=== PATIENT | female | born 1940 | race American Indian/Alaskan Native ===

== ENCOUNTER 2019-01-14 07:32 | Inpatient (IN) | payer MEDICARE ==
[2019-01-14] MEDS ORDERED: LASIX IV ONE (07:42)
[2019-01-14 07:57] LABS: Basophils % (Auto) 0.5 % (0.0-1.8); Eosinophils # (Auto) 0.1 K/mm3 (0.0-0.4); Eosinophils % (Auto) 1.3 % (0.0-4.3); Hematocrit 32.4 % (30.3-42.9); Hemoglobin 10.2 gm/dl (10.1-14.3); Lymphocytes # (Auto) 0.8 K/mm3 (1.2-5.4); Mean Corpuscular HGB Conc 31 % (30-34); Mean Corpuscular Volume 90 fl (79-97); Monocytes # (Auto) 0.4 K/mm3 (0.0-0.8); Monocytes % (Auto) 5.5 % (0.0-7.3); Platelet Count 199 K/mm3 (140-440); Red Cell Distribution Width 17.1 % (13.2-15.2)
--- NOTE | 2019-01-14 08:06 | XRay Report ---
AP CHEST: HISTORY: Dyspnea No comparison. Mild cardiomegaly and mild pulmonary venous congestion are identified. The lungs are generally clear. No evidence for infiltrate, pleural effusion or pneumothorax. The bony structures are demineralized with degenerative change. No displaced fracture is appreciated. IMPRESSION: Mild cardiomegaly and pulmonary venous congestion the no CHF.
[2019-01-14 08:12] LABS: INR 1.13 (0.87-1.13)
[2019-01-14 08:23] LABS: Albumin 3.1 g/dL (3.9-5); Calcium 8.1 mg/dL (8.4-10.2)
[2019-01-14] MEDS ORDERED: DIOVAN PO NR (08:27)
[2019-01-14] MEDS ORDERED: NORMODYNE IV ONE ×2 (08:27→09:57)
[2019-01-14 08:33] LABS: Bacteria,Urine 1+ /HPF (Negative); Bilirubin,Urine NEG (Negative); Blood,Urine SM (Negative); Color,Urine Yellow (Yellow); Mucus,Urine FEW /HPF; Urobilinogen,Urine < 2.0 mg/dL (<2.0)
[2019-01-14 08:39] LABS: Chol/HDL Ratio 3.78 %
--- NOTE | 2019-01-14 09:12 | Emergency Department Report ---
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 History is limited from patient. Hx obtained from daughter, discharge documentation and SNF notes. Mrs. Sanchez was recently discharged from [facility] ago January 11. She was diagnosed with pneumonia. She also has hx of CHF and severe CKD according to daughter/POA Odilia Greenwood . Ms. Greenwood last saw her mother at SNF in [facility]. THis morning, daughter notified by SNF staff that EMS was called for lethargy and obvious work of breathing. EMS applied CPAP for hypoxia 88% RA. prescribed antibiotic cefdinir. Daughter stated that clonidine, hydralazine and amlodipine were discontinued. Daughter explained that Mrs. Sanchez desires comfort care. With certainty, daughter knows that Mrs. Sanchez does not desire intubation nor dialysis./ She does not desire continued aggressive medical treatment. Consequently, daughter is now comfortable with making Mrs. Sanchez DO NOT RESUSCITATE status according to her mother's wishes. PCP Dr. Salo Corona, [facility] Dr. Zi Mcfarlane, [facility] Dr. Joshua Torres, [employer] According to discharge documentation medications include isosorbide mononitrate Nystatin cream Potassium chloride Vesicare torsemide Albuterol Allopurinol Aspirin Colchicine dexlansoprazole Docusate Epoetin Ferrous sulfate Eliquis Atorvastatin Kaylee TOMLINSON Complaint: shortness of breath -: This morning Severity: severe Improves With: other (unknown) Worsens With: other (unknown) Known History Of: congestive heart failure, other (CKD "chronic Bronchitis") Context: other (recent hospitalization) - Related Data Home Medications Medication Instructions Recorded Confirmed Last Taken Acetaminophen/Codeine [Tylenol #3] 1 tab PO Q6H PRN 06/25/13 06/25/13 06/20/13 Amlodipine Besylate 10 mg PO DAILY 06/25/13 06/25/13 06/24/13 Carvedilol 25 mg PO TID 06/25/13 06/25/13 06/24/13 Clopidogrel Bisulfate [Clopidogrel] 75 mg PO 06/25/13 06/25/13 06/18/13 Cyclobenzaprine [Flexeril] 10 mg PO TID 06/25/13 06/25/13 06/21/13 Dexlansoprazole [Dexilant] 60 mg PO DAILY 06/25/13 06/25/13 06/24/13 Docusate Sodium 100 mg PO BID 06/25/13 06/25/13 06/24/13 Ferrous Sulfate [Ferrous Sulfate 325 mg PO DAILY 06/25/13 06/25/13 06/18/13 Oral Liq 300 Mg/5 Ml] Folic Acid/Vit B Comp W-C 1 cap PO QDAY 06/25/13 06/25/13 06/24/13 [Nephrocaps] Hydralazine HCl [hydrALAZINE] 100 mg PO TID 06/25/13 06/25/13 06/24/13 Potassium Chloride [K-Dur] 20 mg PO DAILY 06/25/13 06/25/13 06/24/13 Repaglinide [Prandin] 1 mg PO 06/25/13 06/25/13 06/24/13 Simvastatin 20 mg PO QHS 06/25/13 06/25/13 04/12/13 Sucralfate 1 gm PO TID 06/25/13 06/25/13 06/24/13 Torsemide [Demadex] 20 mg PO BID 06/25/13 06/25/13 06/24/13 Valsartan(Nf) [Diovan] 320 mg PO DAILY 06/25/13 06/25/13 06/24/13 Zolpidem Tartrate 5 mg PO QHS 06/25/13 06/25/13 06/24/13 cloNIDine [Clonidine] 0.2 mg SUBDERMAL QWEEK 06/25/13 06/25/13 06/22/13 fentaNYL [Fentanyl] 75 mg SUBDERMAL Q72HR 06/25/13 06/25/13 06/23/13 Allergies Allergy/AdvReac Type Severity Reaction Status Date / Time ibuprofen AdvReac Severe STOMACH Unverified 06/25/13 08:52 PAIN ED Review of Systems ROS: Stated complaint: ANNABELLA Other details as noted in HPI Comment: Unobtainable due to pts medical conditions (severe respiratory distress) ED Past Medical Hx - Past Medical History Previous Medical History?: Yes Hx Hypertension: Yes Hx Heart Attack/AMI: Yes (2010 w/ stroke) Hx Congestive Heart Failure: Yes Hx Diabetes: Yes Hx GERD: Yes Hx Renal Disease: No (DIMISHED KIDNEYS) Hx Arthritis: Yes Hx Asthma: Yes - Surgical History Additional Surgical History: UTO - Social History Smoking Status: Former Smoker Substance Use Type: None - Medications Home Medications: Home Medications Medication Instructions Recorded Confirmed Last Taken Type Acetaminophen/Codeine [Tylenol #3] 1 tab PO Q6H PRN 06/25/13 06/25/13 06/20/13 History Amlodipine Besylate 10 mg PO DAILY 06/25/13 06/25/13 06/24/13 History Carvedilol 25 mg PO TID 06/25/13 06/25/13 06/24/13 History Clopidogrel Bisulfate [Clopidogrel] 75 mg PO 06/25/13 06/25/13 06/18/13 History Cyclobenzaprine [Flexeril] 10 mg PO TID 06/25/13 06/25/13 06/21/13 History Dexlansoprazole [Dexilant] 60 mg PO DAILY 06/25/13 06/25/13 06/24/13 History Docusate Sodium 100 mg PO BID 06/25/13 06/25/13 06/24/13 History Ferrous Sulfate [Ferrous Sulfate 325 mg PO DAILY 06/25/13 06/25/13 06/18/13 History Oral Liq 300 Mg/5 Ml] Folic Acid/Vit B Comp W-C 1 cap PO QDAY 06/25/13 06/25/13 06/24/13 History [Nephrocaps] Hydralazine HCl [hydrALAZINE] 100 mg PO TID 06/25/13 06/25/13 06/24/13 History Potassium Chloride [K-Dur] 20 mg PO DAILY 06/25/13 06/25/13 06/24/13 History Repaglinide [Prandin] 1 mg PO 06/25/13 06/25/13 06/24/13 History Simvastatin 20 mg PO QHS 06/25/13 06/25/13 04/12/13 History Sucralfate 1 gm PO TID 06/25/13 06/25/13 06/24/13 History Torsemide [Demadex] 20 mg PO BID 06/25/13 06/25/13 06/24/13 History Valsartan(Nf) [Diovan] 320 mg PO DAILY 06/25/13 06/25/13 06/24/13 History Zolpidem Tartrate 5 mg PO QHS 06/25/13 06/25/13 06/24/13 History cloNIDine [Clonidine] 0.2 mg SUBDERMAL QWEEK 06/25/13 06/25/13 06/22/13 History fentaNYL [Fentanyl] 75 mg SUBDERMAL Q72HR 06/25/13 06/25/13 06/23/13 History ED Physical Exam - General Limitations: Physical Limitation General appearance: alert, lethargic, in distress - Head Head exam: Present: atraumatic, normocephalic - Eye Eye exam: Present: normal appearance - ENT ENT exam: Present: mucous membranes moist - Neck Neck exam: Present: normal inspection - Respiratory Respiratory exam: Present: respiratory distress, rales, rhonchi, accessory muscle use, decreased breath sounds - Cardiovascular Cardiovascular Exam: Present: regular rate, normal rhythm, normal heart sounds. Absent: systolic murmur, diastolic murmur, rubs, gallop - GI/Abdominal GI/Abdominal exam: Present: soft, normal bowel sounds. Absent: distended, tenderness, guarding, rebound - Extremities Exam Extremities exam: Present: pedal edema - Back Exam Back exam: Present: normal inspection - Neurological Exam Neurological exam: Present: other (arousable) - Psychiatric Psychiatric exam: Present: flat affect - Skin Skin exam: Present: warm, dry, intact, normal color. Absent: rash ED Course Vital Signs 01/14/19 01/14/19 01/14/19 07:45 08:20 08:35 Temperature 98.9 F Pulse Rate 88 80 Respiratory 24 Rate Blood Pressure 204/132 190/92 Blood Pressure 210/100 [Right] O2 Sat by Pulse 98 Oximetry 01/14/19 01/14/19 01/14/19 09:15 09:26 09:32 Temperature Pulse Rate 89 80 Respiratory 12 17 Rate Blood Pressure 210/100 Blood Pressure 188/83 [Right] O2 Sat by Pulse 96 96 97 Oximetry ED Medical Decision Making - Lab Data Result diagrams: 01/14/19 07:48 01/14/19 07:48 Laboratory Results - last 24 hr 01/14/19 01/14/19 01/14/19 07:45 07:48 07:48 WBC 7.0 RBC 3.60 L Hgb 10.2 Hct 32.4 MCV 90 MCH 28 MCHC 31 RDW 17.1 H Plt Count 199 Lymph % (Auto) 11.0 L Sch[place] % (Auto) 5.5 Eos % (Auto) 1.3 Baso % (Auto) 0.5 Lymph # 0.8 L [place] # 0.4 Eos # 0.1 Baso # 0.0 Seg Neutrophils % 81.7 H Seg Neutrophils # 5.8 PT 15.2 H INR 1.13 POC ABG pH POC ABG pCO2 POC ABG pO2 POC ABG HCO3 POC ABG Total CO2 POC ABG O2 Sat POC ABG Base Excess FiO2 Sodium Potassium Chloride Carbon Dioxide Anion Gap BUN Creatinine Estimated GFR BUN/Creatinine Ratio Glucose Lactic Acid 1.00 Calcium Magnesium Total Bilirubin AST ALT Alkaline Phosphatase Troponin T NT-Pro-B Natriuret Pep Total Protein Albumin Albumin/Globulin Ratio Triglycerides Cholesterol LDL Cholesterol Direct HDL Cholesterol Cholesterol/HDL Ratio Urine Color Urine Turbidity Urine pH Ur Specific [place] Urine Protein Urine Glucose (UA) Urine Ketones Urine Blood Urine Nitrite Urine Bilirubin Urine Urobilinogen Ur Leukocyte Esterase Urine WBC (Auto) Urine RBC (Auto) Urine Bacteria (Auto) Urine Mucus 01/14/19 01/14/19 01/14/19 07:48 07:48 08:58 WBC RBC Hgb Hct MCV MCH MCHC RDW Plt Count Lymph % (Auto) [place] % (Auto) Eos % (Auto) Baso % (Auto) Lymph # [place] # Eos # Baso # Seg Neutrophils % Seg Neutrophils # PT INR POC ABG pH 7.384 POC ABG pCO2 50.8 H POC ABG pO2 104 POC ABG HCO3 30.3 POC ABG Total CO2 32 POC ABG O2 Sat 98 POC ABG Base Excess 5 FiO2 35 Sodium 147 H Potassium 4.7 Chloride 106.6 Carbon Dioxide 27 Anion Gap 18 BUN 72 H Creatinine 3.4 H Estimated GFR 16 BUN/Creatinine Ratio 21 Glucose 113 H Lactic Acid Calcium 8.1 L Magnesium 2.10 Total Bilirubin 0.30 AST 25 ALT 9 Alkaline Phosphatase 52 Troponin T 0.496 H* NT-Pro-B Natriuret Pep 8268 H Total Protein 7.6 Albumin 3.1 L Albumin/Globulin Ratio 0.7 Triglycerides 96 Cholesterol 174 LDL Cholesterol Direct 128 HDL Cholesterol 46 Cholesterol/HDL Ratio 3.78 Urine Color Urine Turbidity Urine pH Ur Specific [place] Urine Protein Urine Glucose (UA) Urine Ketones Urine Blood Urine Nitrite Urine Bilirubin Urine Urobilinogen Ur Leukocyte Esterase Urine WBC (Auto) Urine RBC (Auto) Urine Bacteria (Auto) Urine Mucus 01/14/19 Unknown WBC RBC Hgb Hct MCV MCH MCHC RDW Plt Count Lymph % (Auto) [place] % (Auto) Eos % (Auto) Baso % (Auto) Lymph # Schley # Eos # Baso # Seg Neutrophils % Seg Neutrophils # PT INR POC ABG pH POC ABG pCO2 POC ABG pO2 POC ABG HCO3 POC ABG Total CO2 POC ABG O2 Sat POC ABG Base Excess FiO2 Sodium Potassium Chloride Carbon Dioxide Anion Gap BUN Creatinine Estimated GFR BUN/Creatinine Ratio Glucose Lactic Acid Calcium Magnesium Total Bilirubin AST ALT Alkaline Phosphatase Troponin T NT-Pro-B Natriuret Pep Total Protein Albumin Albumin/Globulin Ratio Triglycerides Cholesterol LDL Cholesterol Direct HDL Cholesterol Cholesterol/HDL Ratio Urine Color Yellow Urine Turbidity Clear Urine pH 5.0 Ur Specific [place] 1.008 Urine Protein 30 mg/dl Urine Glucose (UA) Neg Urine Ketones Neg Urine Blood Sm Urine Nitrite Neg Urine Bilirubin Neg Urine Urobilinogen < 2.0 Ur Leukocyte Esterase Tr Urine WBC (Auto) 5.0 Urine RBC (Auto) 5.0 Urine Bacteria (Auto) 1+ Urine Mucus Few - EKG Data 01/14/19 09:15 EKG obtained 0731 Normal sinus rhythm rate 80 beats a minute axis intervals no significant ST elevation positive LVH lateral T-wave inversion - Radiology Data Radiology results: report reviewed - Medical Decision Making 1. Acute respiratory failure hypoxia, etiology multifactorial, acute CHF, history of pneumonia, history of chronic bronchitis, initiated on BiPAP therapy, now on Ventimask. 2. Hypertensive emergency: IV and by mouth antihypertensive medications administered in the ED 3. Acute coronary syndrome, elevated troponin unclear significance at this time, primary cardiology group [facility] has been consulted, ASA held with hx of eliquis anticoagulation 4. DNR status, form completed with daughter's signature, witnessed by RN, Admitted to hospitalist service in fair condition Critical Care Time: Yes Critical care time in (mins) excluding proc time.: 40 Critical care attestation.: If time is entered above; I have spent that time in minutes in the direct care of this critically ill patient, excluding procedure time. 40 minutes of critical care time excluding procedures were used in the care of the patient. Patient required multiple assessments and interventions. I reviewed the electronic medical record. I spoke with consultants involved in the care of the patient. I came to the bedside immediately upon arrival. I was concerned for worsening respiratory failure. I obtain history from EMS. I had an extensive discussion regarding end-of-life wishes of the patient with daughter. ED Disposition Clinical Impression: Acute respiratory failure with hypoxia, Acute CHF (congestive heart failure), Hypertensive emergency Disposition: [id number] OP ADMIT IP TO THIS HOSP Is pt being admited?: Yes Does the pt Need Aspirin: No Condition: Fair Referrals: SALO CORONA [Other] - 3-5 Days
[2019-01-14] MEDS ORDERED: MORPHINE IV ONE ×2 (10:28→11:06)
--- NOTE | 2019-01-14 10:55 | Consultation ---
History of Present Illness Consult date: 01/14/19 Consult reason: congestive heart failure History of present illness: Patient is an 78 year old woman who was sent to the emergency department from the shelter with shortness of breath, admitted with hypoxic respiratory failure and uncontrolled hypertension. Of note, patient was discharged from [facility] 72 hours ago. On presentation, there were no reports of chest pain or palpitations. She has no lower extremity edema. Chest x-ray reports cardiomegaly but no evidence of heart failure. An ECG is sinus rhythm, LVH with repolarization abnormalities. Family member at bedside reports the patient is followed by [facility]. Review of chart shows a history of paroxysmal atrial fibrillation and she takes low dose eliquis for oral anticoagulation. Records also reports she has a history of CHF, chronic hypertension, chronic renal disease, diabetes and chronic pain. Medications and Allergies Allergies Allergy/AdvReac Type Severity Reaction Status Date / Time ibuprofen AdvReac Severe STOMACH Unverified 06/25/13 08:52 PAIN Home Medications Medication Instructions Recorded Confirmed Last Taken Type ALBUTEROL Inhaler (OR & NICU) 2 puff IH QID PRN 01/14/19 01/14/19 Unknown History [Proair] Allopurinol [Zyloprim] 100 mg PO QDAY 01/14/19 01/14/19 Unknown History Apixaban [Eliquis] 2.5 mg PO BID 01/14/19 01/14/19 Unknown History Aspirin [Adult Aspirin] 81 mg PO DAILY 01/14/19 01/14/19 Unknown History AtorvaSTATin [Lipitor] 40 mg PO QHS 01/14/19 01/14/19 Unknown History Carvedilol 6.25 mg PO BID 01/14/19 01/14/19 Unknown History Colchicine 0.6 mg PO DAILY 01/14/19 01/14/19 Unknown History Dexlansoprazole [Dexilant] 30 mg PO QDAY 01/14/19 01/14/19 Unknown History Docusate Sodium [Colace] 100 mg PO BID 01/14/19 01/14/19 Unknown History Ferrous Sulfate [Iron 325 MG] 325 mg PO DAILY 01/14/19 01/14/19 Unknown History ISOSORBIDE MONOnitrate [Imdur ER] 60 mg PO QDAY 01/14/19 01/14/19 Unknown History Potassium Chloride [K-Dur] 10 meq PO BID 01/14/19 01/14/19 Unknown History Pregabalin [Lyrica] 50 mg PO DAILY 01/14/19 01/14/19 Unknown History Torsemide [Demadex] 80 mg PO DAILY 01/14/19 01/14/19 Unknown History Valsartan 40 mg PO DAILY 01/14/19 01/14/19 Unknown History Vit B Comp No.3/Folic/C/Biotin 1 each PO DAILY 01/14/19 01/14/19 Unknown History [Nephro-Rocío Rx Tablet] Physical Examination Vital Signs Temp Pulse Resp BP Pulse Ox 98.9 F 88 24 204/132 98 01/14/19 07:45 01/14/19 07:45 01/14/19 07:45 01/14/19 07:45 01/14/19 07:45 General appearance: no acute distress HEENT: Positive: PERRL Neck: Positive: trachea midline Cardiac: Positive: Reg Rate and Rhythm Lungs: Positive: Decreased Breath Sounds Extremities: Absent: edema Results 01/14/19 07:48 01/14/19 07:48 Cardiac Enzymes 01/14/19 Range/Units 07:48 AST 25 (5-40) units/L Coagulation 01/14/19 Range/Units 07:48 PT 15.2 H (12.2-14.9) Sec. INR 1.13 (0.87-1.13) Lipids 01/14/19 Range/Units 07:48 Triglycerides 96 (2-149) mg/dL Cholesterol 174 (50-199) mg/dL HDL Cholesterol 46 (40-59) mg/dL Cholesterol/HDL Ratio 3.78 % CBC 01/14/19 Range/Units 07:48 WBC 7.0 (4.5-11.0) K/mm3 RBC 3.60 L (3.65-5.03) M/mm3 Hgb 10.2 (10.1-14.3) gm/dl Hct 32.4 (30.3-42.9) % Plt Count 199 (140-440) K/mm3 Lymph # 0.8 L (1.2-5.4) K/mm3 [place] # 0.4 (0.0-0.8) K/mm3 Eos # 0.1 (0.0-0.4) K/mm3 Baso # 0.0 (0.0-0.1) K/mm3 Comprehensive Metabolic Panel 01/14/19 Range/Units 07:48 Sodium 147 H (137-145) mmol/L Potassium 4.7 (3.6-5.0) mmol/L Chloride 106.6 (98-107) mmol/L Carbon Dioxide 27 (22-30) mmol/L BUN 72 H (7-17) mg/dL Creatinine 3.4 H (0.7-1.2) mg/dL Glucose 113 H (65-100) mg/dL Calcium 8.1 L (8.4-10.2) mg/dL AST 25 (5-40) units/L ALT 9 (7-56) units/L Alkaline Phosphatase 52 (35-129) units/L Total Protein 7.6 (6.3-8.2) g/dL Albumin 3.1 L (3.9-5) g/dL Assessment and Plan Acute hypoxic respiratory failure Chronic renal disease Hypertension Paroxysmal Afib on eliquis 2.5mg as an outpatient Diabetes hx of CHF Obtain cardiac records from [facility].
[2019-01-14] MEDS ORDERED: CATAPRES PO ONE (11:06)
[2019-01-14] MEDS ORDERED: PROAIR IH PRN (12:18)
[2019-01-14] MEDS ORDERED: ZOFRAN IV PRN (12:26)
[2019-01-14] MEDS ORDERED: SODIUM CHLORIDE FLUSH SYRINGE 10 ML IV PRN (12:26)
[2019-01-14] MEDS ORDERED: TYLENOL PO PRN (12:26)
[2019-01-14] MEDS ORDERED: NARCAN 0.4 MG/1 ML IV PRN (12:49)
--- NOTE | 2019-01-14 14:57 | History and Physical Report ---
History of Present Illness Date of examination: 01/14/19 Date of admission: 01/14/19 09:55 Chief complaint: Acute Respiratory Failure History of present illness: 78 y.o Female with history of DM, CKD, Storke in 2010, CHF, paroxysmal atrial fibrillation anticoagulated on Eliquis, HTN, presented to the ED via EMS for acute hypoxic respiratory failure. Pt was recently admitted and treated at [facility] for UTI and PNA. She was discharged to [facility]. Upon EMS arrival to [facility] pt was round to be in hypoxic and in respiratory distress, she was placed on CPAP and transported to [facility]. Past History Past Medical History: heart failure, hypertension, stroke, other Past Surgical History: No surgical history Social history: lives with family Family history: no significant family history Medications and Allergies Allergies Allergy/AdvReac Type Severity Reaction Status Date / Time ibuprofen AdvReac Severe STOMACH Unverified 06/25/13 08:52 PAIN Home Medications Medication Instructions Recorded Confirmed Last Taken Type ALBUTEROL Inhaler (OR & NICU) 2 puff IH QID PRN 01/14/19 01/14/19 Unknown History [Proair] Allopurinol [Zyloprim] 100 mg PO QDAY 01/14/19 01/14/19 Unknown History Apixaban [Eliquis] 2.5 mg PO BID 01/14/19 01/14/19 Unknown History Aspirin [Adult Aspirin] 81 mg PO DAILY 01/14/19 01/14/19 Unknown History AtorvaSTATin [Lipitor] 40 mg PO QHS 01/14/19 01/14/19 Unknown History Carvedilol 6.25 mg PO BID 01/14/19 01/14/19 Unknown History Colchicine 0.6 mg PO DAILY 01/14/19 01/14/19 Unknown History Dexlansoprazole [Dexilant] 30 mg PO QDAY 01/14/19 01/14/19 Unknown History Docusate Sodium [Colace] 100 mg PO BID 01/14/19 01/14/19 Unknown History Ferrous Sulfate [Iron 325 MG] 325 mg PO DAILY 01/14/19 01/14/19 Unknown History ISOSORBIDE MONOnitrate [Imdur ER] 60 mg PO QDAY 01/14/19 01/14/19 Unknown History Potassium Chloride [K-Dur] 10 meq PO BID 01/14/19 01/14/19 Unknown History Pregabalin [Lyrica] 50 mg PO DAILY 01/14/19 01/14/19 Unknown History Torsemide [Demadex] 80 mg PO DAILY 01/14/19 01/14/19 Unknown History Valsartan 40 mg PO DAILY 01/14/19 01/14/19 Unknown History Vit B Comp No.3/Folic/C/Biotin 1 each PO DAILY 01/14/19 01/14/19 Unknown History [Nephro-Rocío Rx Tablet] Active Meds: Active Medications Acetaminophen (Tylenol) 650 mg PO Q4H PRN PRN Reason: Pain MILD(1-3)/Fever >100.5/MARTELL Albuterol (Proventil) 2.5 mg IH Q4HRT PRN PRN Reason: Shortness Of Breath Allopurinol (Zyloprim) 100 mg PO QDAY [facility] Apixaban (Eliquis) 2.5 mg PO BID SALVATORE; Protocol Aspirin (Halfprin Ec) 81 mg PO DAILY [facility] Atorvastatin Calcium (Lipitor) 40 mg PO QHS [facility], [facility] Carvedilol (Coreg) 6.25 mg PO BID [facility] Colchicine (Colchicine) 0.6 mg PO DAILY [facility] Docusate Sodium (Colace) 100 mg PO BID [facility] Ferrous Sulfate (Feosol) 325 mg PO DAILY [facility]1983 Furosemide (Lasix) 40 mg IV BID@0600,1800 [facility], [facility]1983 Isosorbide Mononitrate (Imdur) 60 mg PO QDAY [facility] Morphine Sulfate (Morphine) 2 mg IV Q4H PRN PRN Reason: Pain, Moderate (4-6) Multivit/Ca Carb/B Cmplx/FA/Prenat (Renal Caps) 1 cap PO QDAY [facility] Naloxone HCl (Narcan 0.4 Mg/1 Ml) 0.1 mg IV Q2MIN PRN PRN Reason: Res Rate </= 8 or 02 SAT < 92% Ondansetron HCl (Zofran) 4 mg IV Q8H PRN PRN Reason: Nausea And Vomiting Pantoprazole Sodium (Protonix) 20 mg PO QDAY [facility] Potassium Chloride (K-Dur) 10 meq PO BID [facility] Pregabalin (Lyrica) 50 mg PO QDAY [facility] Sodium Chloride (Sodium Chloride Flush Syringe 10 Ml) 10 ml IV BID [facility] Sodium Chloride (Sodium Chloride Flush Syringe 10 Ml) 10 ml IV PRN PRN PRN Reason: LINE FLUSH Valsartan (Diovan) 40 mg PO DAILY SALVATORE Review of Systems ROS unobtainable: due to mental status Exam - Constitutional Vitals: Temp Pulse Resp BP Pulse Ox 98.9 F 80 18 174/75 91 01/14/19 07:45 01/14/19 11:32 01/14/19 11:32 01/14/19 11:32 01/14/19 11:32 General appearance: Present: no acute distress - EENT Eyes: Present: PERRL ENT: other - Neck Neck: Present: supple - Respiratory Respiratory effort: labored Respiratory: bilateral: diminished - Cardiovascular Rhythm: irregularly irregular Heart Sounds: Present: S1 & S2 - Extremities Extremities: pulses symmetrical, No edema - Abdominal General gastrointestinal: Present: soft Female genitourinary: Present: deferred - Rectal Rectal Exam: deferred - Integumentary Integumentary: Present: warm, dry - Musculoskeletal Musculoskeletal: other - Psychiatric Psychiatric: other - Neurologic Neurologic: other (Unable to assess ) Results - Labs CBC & Chem 7: 01/14/19 07:48 01/14/19 07:48 Labs: Laboratory Last Values WBC 7.0 K/mm3 (4.5-11.0) 01/14/19 07:48 RBC 3.60 M/mm3 (3.65-5.03) L 01/14/19 07:48 Hgb 10.2 gm/dl (10.1-14.3) 01/14/19 07:48 Hct 32.4 % (30.3-42.9) 01/14/19 07:48 MCV 90 fl (79-97) 01/14/19 07:48 MCH 28 pg (28-32) 01/14/19 07:48 MCHC 31 % (30-34) 01/14/19 07:48 RDW 17.1 % (13.2-15.2) H 01/14/19 07:48 Plt Count 199 K/mm3 (140-440) 01/14/19 07:48 Lymph % (Auto) 11.0 % (13.4-35.0) L 01/14/19 07:48 [place] % (Auto) 5.5 % (0.0-7.3) 01/14/19 07:48 Eos % (Auto) 1.3 % (0.0-4.3) 01/14/19 07:48 Baso % (Auto) 0.5 % (0.0-1.8) 01/14/19 07:48 Lymph # 0.8 K/mm3 (1.2-5.4) L 01/14/19 07:48 [place] # 0.4 K/mm3 (0.0-0.8) 01/14/19 07:48 Eos # 0.1 K/mm3 (0.0-0.4) 01/14/19 07:48 Baso # 0.0 K/mm3 (0.0-0.1) 01/14/19 07:48 Seg Neutrophils % 81.7 % (40.0-70.0) H 01/14/19 07:48 Seg Neutrophils # 5.8 K/mm3 (1.8-7.7) 01/14/19 07:48 PT 15.2 Sec. (12.2-14.9) H 01/14/19 07:48 INR 1.13 (0.87-1.13) 01/14/19 07:48 POC ABG pH 7.384 (7.35-7.45) 01/14/19 08:58 POC ABG pCO2 50.8 (35-45) H 01/14/19 08:58 POC ABG pO2 104 (80-105) 01/14/19 08:58 POC ABG HCO3 30.3 (22-26 mml/L) 01/14/19 08:58 POC ABG Total CO2 32 (23-27mmol/L) 01/14/19 08:58 POC ABG O2 Sat 98 01/14/19 08:58 POC ABG Base Excess 5 ((-2) - (+3)mmol/L) 01/14/19 08:58 FiO2 35 % 01/14/19 08:58 Sodium 147 mmol/L (137-145) H 01/14/19 07:48 Potassium 4.7 mmol/L (3.6-5.0) 01/14/19 07:48 Chloride 106.6 mmol/L (98-107) 01/14/19 07:48 Carbon Dioxide 27 mmol/L (22-30) 01/14/19 07:48 Anion Gap 18 mmol/L 01/14/19 07:48 BUN 72 mg/dL (7-17) H 01/14/19 07:48 Creatinine 3.4 mg/dL (0.7-1.2) H 01/14/19 07:48 Estimated GFR 16 ml/min 01/14/19 07:48 BUN/Creatinine Ratio 21 % 01/14/19 07:48 Glucose 113 mg/dL (65-100) H 01/14/19 07:48 Lactic Acid 1.00 mmol/L (0.7-2.0) 01/14/19 07:45 Calcium 8.1 mg/dL (8.4-10.2) L 01/14/19 07:48 Magnesium 2.10 mg/dL (1.7-2.3) 01/14/19 07:48 Total Bilirubin 0.30 mg/dL (0.1-1.2) 01/14/19 07:48 AST 25 units/L (5-40) 01/14/19 07:48 ALT 9 units/L (7-56) 01/14/19 07:48 Alkaline Phosphatase 52 units/L (35-129) 01/14/19 07:48 Troponin T 0.496 ng/mL (0.00-0.029) H* 01/14/19 07:48 NT-Pro-B Natriuret Pep 8268 pg/mL (0-900) H 01/14/19 07:48 Total Protein 7.6 g/dL (6.3-8.2) 01/14/19 07:48 Albumin 3.1 g/dL (3.9-5) L 01/14/19 07:48 Albumin/Globulin Ratio 0.7 % 01/14/19 07:48 Triglycerides 96 mg/dL (2-149) 01/14/19 07:48 Cholesterol 174 mg/dL (50-199) 01/14/19 07:48 LDL Cholesterol Direct 128 mg/dL (50-130) 01/14/19 07:48 HDL Cholesterol 46 mg/dL (40-59) 01/14/19 07:48 Cholesterol/HDL Ratio 3.78 % 01/14/19 07:48 Urine Color Yellow (Yellow) 01/14/19 Unknown Urine Turbidity Clear (Clear) 01/14/19 Unknown Urine pH 5.0 (5.0-7.0) 01/14/19 Unknown Ur Specific [place] 1.008 (1.003-1.030) 01/14/19 Unknown Urine Protein 30 mg/dl mg/dL (Negative) 01/14/19 Unknown Urine Glucose (UA) Neg mg/dL (Negative) 01/14/19 Unknown Urine Ketones Neg mg/dL (Negative) 01/14/19 Unknown Urine Blood Sm (Negative) 01/14/19 Unknown Urine Nitrite Neg (Negative) 01/14/19 Unknown Urine Bilirubin Neg (Negative) 01/14/19 Unknown Urine Urobilinogen < 2.0 mg/dL (<2.0) 01/14/19 Unknown Ur Leukocyte Esterase Tr (Negative) 01/14/19 Unknown Urine WBC (Auto) 5.0 /HPF (0.0-6.0) 01/14/19 Unknown Urine RBC (Auto) 5.0 /HPF (0.0-6.0) 01/14/19 Unknown Urine Bacteria (Auto) 1+ /HPF (Negative) 01/14/19 Unknown Urine Mucus Few /HPF 01/14/19 Unknown Assessment and Plan Assessment and plan: 78 y.o Female with history of DM, CKD, [place] in 2010, CHF, paroxysmal atrial fibrillation anticoagulated on Eliquis, HTN, presented to the ED via EMS for acute hypoxic respiratory failure. Recently admitted and treated at [facility] for UTI and PNA. She was discharged to [facility] on 01/11/19. Found to be hypoxic and in respiratory distress at SNF. She was transported to [facility] ER for further evaluation and treatment. Currently pt is on Venturi mask with agonal breathing. She is stuporous. Her family is present at the bedside. Pt is DNR and goals of care were discussed. At this time family has requested home hospice consultation. Acute hypoxic respiratory Currently on Venturi Mask Continue to monitor O2 sats Home hospice consult pending CHF Today's CXR showed mild cardiomegaly and pulmonary venous congestion Cardiology consultated recommendations appreciated Followed by [facility] as Outpatient Paroxysmal A. fib Home regimen includes eliquis 2.5mg Currently on telemetry monitoring Hypertension Continue to monitor BP CKD On admission BUN/Cr 72/3.4 Monitor BUN and creatinine Advance Directives: Yes VTE prophylaxis?: Not ordered
[2019-01-14] MEDS: MORPHINE IV PRN ×2 (17:14→21:14)
[2019-01-14] MEDS: LASIX IV SCH (17:15)
[2019-01-14] MEDS ORDERED: CEPHULAC PO PRN (18:31)
[2019-01-14] MEDS: CEPHULAC PO SCH (20:23)
[2019-01-14] MEDS: ELIQUIS PO SCH (21:13)
[2019-01-14] MEDS: COREG PO SCH (21:13)
[2019-01-14] MEDS: K-DUR PO SCH (21:13)
[2019-01-14] MEDS: COLACE PO SCH (21:13)
[2019-01-14] MEDS: SODIUM CHLORIDE FLUSH SYRINGE 10 ML IV SCH (21:23)
[2019-01-15] MEDS ORDERED: LASIX IV ONE (00:26)
[2019-01-15] MEDS: PROVENTIL IH PRN (00:26)
[2019-01-15] MEDS: MORPHINE IV PRN ×2 (00:52→05:28)
--- NOTE | 2019-01-15 01:41 | XRay Report ---
PROCEDURE: XR CHEST 1V AP TECHNIQUE: Chest radiograph single view. HISTORY: SOB COMPARISONS: January 14, 2019 . FINDINGS: Heart: Normal. Mediastinum/Vessels: Normal. Lungs/Pleural space: There is pulmonary vascular congestion and mild pulmonary edema.. There is no p leural effusion or pneumothorax. Bony thorax: No acute osseous abnormality. Life support devices: None. IMPRESSION: Heart size is normal.. There is pulmonary vascular congestion and mild pulmonary edema.. There is no pleural effusion or pneumothorax. This document is electronically signed by Tino Askew MD., January 15 2019 01:39:40 AM ET
[2019-01-15] MEDS: LASIX IV SCH (06:35)
[2019-01-15] MEDS: LYRICA PO SCH (09:57)
[2019-01-15] MEDS: DIOVAN PO SCH (09:57)
[2019-01-15] MEDS: ZYLOPRIM PO SCH (09:57)
[2019-01-15] MEDS: IMDUR PO SCH (09:58)
[2019-01-15] MEDS: CEPHULAC PO SCH (09:58)
[2019-01-15] MEDS: COLACE PO SCH ×2 (09:58→22:05)
[2019-01-15] MEDS: Renal Caps PO SCH (09:58)
[2019-01-15] MEDS: HALFPRIN EC PO SCH (09:58)
[2019-01-15] MEDS: COLCHICINE PO SCH (09:58)
[2019-01-15] MEDS: K-DUR PO SCH ×2 (09:58→22:05)
[2019-01-15] MEDS: ELIQUIS PO SCH ×2 (09:59→22:05)
[2019-01-15] MEDS: COREG PO SCH ×2 (09:59→22:05)
[2019-01-15] MEDS ORDERED: DEXLANSOPRAZOLE 30 MG PO SCH ×2 (10:00)
[2019-01-15] MEDS ORDERED: NON-FORMULARY (Vit B Comp No.3/Folic/C/Biotin [Nephro-Vite Rx Tablet] 1 EACH) PO SCH (10:00)
[2019-01-15] MEDS ORDERED: NON-FORMULARY (Pregabalin [Lyrica] 50 MG) PO SCH (10:00)
--- NOTE | 2019-01-15 11:47 | Progress Note ---
Assessment and Plan Acute hypoxic respiratory failure Chronic renal disease Hypertension Paroxysmal Afib on eliquis 2.5mg as an outpatient Diabetes Hx of CHF chest x-ray showed abnormal cardiac silhouette, mild vascular congestion, but no overt pulmonary edema or heart failure. Non-specific troponin s/t renal failure Request previous cardiac workup from [facility] for review. Otherwise pursue a conservative cardiac management. Subjective Date of service: 01/15/19 Interval history: On Bi-pap therapy. Afib with a well controlled ventricular rate on telemetry. Objective Vital Signs Temp Pulse Pulse Pulse Resp Resp BP 01/15/19 10:15 80 01/15/19 10:04 75 01/15/19 09:59 64 132/36 01/15/19 09:58 64 132/36 01/15/19 09:57 64 132/36 01/15/19 09:03 98.3 F 64 16 132/36 01/15/19 05:58 20 01/15/19 05:28 18 01/15/19 03:31 98.0 F 69 19 138/66 01/15/19 01:30 01/15/19 01:22 20 01/15/19 00:56 91 H 19 01/15/19 00:55 91 H 19 01/15/19 00:52 18 01/15/19 00:30 79 25 H 01/14/19 23:22 98.3 F 82 22 172/76 01/14/19 22:40 67 20 01/14/19 21:44 18 01/14/19 21:14 18 01/14/19 21:13 67 158/61 01/14/19 19:45 98.1 F 67 22 158/61 01/14/19 19:08 67 01/14/19 17:44 18 01/14/19 16:21 97.5 F L 20 191/89 01/14/19 13:20 01/14/19 12:47 98.1 F 18 120/78 01/14/19 12:01 80 10 L 194/80 01/14/19 11:51 81 8 L 174/75 BP Pulse Ox 01/15/19 10:15 160/69 100 01/15/19 10:04 177/67 100 01/15/19 09:59 01/15/19 09:58 01/15/19 09:57 01/15/19 09:03 100 01/15/19 05:58 01/15/19 05:28 01/15/19 03:31 100 01/15/19 01:30 99 01/15/19 01:22 01/15/19 00:56 96 01/15/19 00:55 01/15/19 00:52 01/15/19 00:30 01/14/19 23:22 95 01/14/19 22:40 100 01/14/19 21:44 01/14/19 21:14 01/14/19 21:13 01/14/19 19:45 100 01/14/19 19:08 01/14/19 17:44 01/14/19 16:21 01/14/19 13:20 94 01/14/19 12:47 01/14/19 12:01 93 01/14/19 11:51 93 - Physical Examination General: No Apparent Distress HEENT: Positive: PERRL Cardiac: Positive: irregularly irregular Lungs: Positive: Decreased Breath Sounds Extremities: Absent: edema
[2019-01-15] MEDS: FEOSOL PO SCH (13:09)
[2019-01-15] MEDS: SODIUM CHLORIDE FLUSH SYRINGE 10 ML IV SCH ×2 (13:09→22:06)
[2019-01-15] MEDS: PROTONIX PO SCH (13:09)
--- NOTE | 2019-01-15 14:37 | Discharge Summary ---
Providers - Providers Date of Admission: 01/14/19 09:55 Date of discharge: 01/15/19 Attending physician: RICKEY MCCLELLAND MD Primary care physician: ADAM CORONA Hospitalization Reason for admission: hypoxic respiratory failure Condition: Stable Disposition: DC-51 HOSPICE ([facility]) Time spent for discharge: 33 Core Measure Documentation - Palliative Care Palliative Care/ Comfort Measures: Hospice Care - Core Measures Any of the following diagnoses?: heart failure - VTE Discharge Requirements Deep Vein Thrombosis/Pulmonary Embolism Present on Admission: No Contraindication No Overlap Therapy order at DC: Not Indicated - Acute NH Discharge Requirements Aspirin at discharge: Yes SARAH/ARB for LVSD if EF <40%: Not Applicable Beta johana at discharge: Yes Statin for LDL = or >100 mg/dl on DC: Yes - Heart Failure Discharge Requirements SARAH/ARB for LVSD if EF <40%: Yes Beta johana at discharge: Yes - Stroke Discharge Requirements Statin for LDL = or >70 mg/dl on DC: Yes Anticoag for atrial fib/atrial flutter: Not Applicable Reason for no antithrombotic on DC: Not Indicated Exam - Physical Exam Narrative exam: 78 y.o Female with history of DM, CKD, [place] in 2010, CHF, paroxysmal atrial fibrillation anticoagulated on Eliquis, HTN, presented to the ED via EMS for acute hypoxic respiratory failure. Pt was recently admitted and treated at [facility] for UTI and PNA. She was discharged to [facility]. Upon EMS arrival to [facility] pt was round to be in hypoxic and in respiratory distress, she was placed on CPAP and transported to [facility]. She was transitioned to Venturi mask in ED. While on the Venturi mask pt displayed periods of agonal breathing. Her family was present at the bedside. Pt is DNR and will be discharged to Inpatient Hospice. - Constitutional Vitals: Temp Pulse Resp BP Pulse Ox 97.8 F 73 18 149/47 100 01/15/19 12:21 01/15/19 12:22 01/15/19 12:22 01/15/19 12:22 01/15/19 12:22 General appearance: Present: no acute distress - EENT Eyes: Present: PERRL ENT: poor dentition - Neck Neck: Present: supple - Respiratory Respiratory effort: other Respiratory: bilateral: diminished - Cardiovascular Rhythm: regular Heart Sounds: Present: S1 & S2 - Extremities Extremities: pulses intact Peripheral Pulses: within normal limits - Abdominal General gastrointestinal: Present: soft Female genitourinary: Present: deferred - Rectal Rectal Exam: deferred - Integumentary Integumentary: Present: warm, dry - Musculoskeletal Musculoskeletal: generalized weakness - Psychiatric Psychiatric: cooperative - Neurologic Neurologic: other (able to follow commands) Plan Activity: advance as tolerated Weight Bearing Status: Weight Bear as Tolerated Diet: advance as tolerated Follow up with: ADAM CORONA [Other] - 3-5 Days Prescriptions: Linezolid 600 mg PO BID 14 Days tablet
[2019-01-15] MEDS ORDERED: CEPHULAC PO SCH (18:31)
[2019-01-16] MEDS: LASIX IV SCH ×2 (05:46→17:55)
[2019-01-16] MEDS: CEPHULAC PO SCH (09:36)
[2019-01-16] MEDS: FEOSOL PO SCH (09:36)
[2019-01-16] MEDS: Renal Caps PO SCH (09:36)
[2019-01-16] MEDS: COLCHICINE PO SCH (09:37)
[2019-01-16] MEDS: DIOVAN PO SCH (09:37)
[2019-01-16] MEDS: ELIQUIS PO SCH ×2 (09:37→21:55)
[2019-01-16] MEDS: COREG PO SCH ×2 (09:38→21:55)
[2019-01-16] MEDS: K-DUR PO SCH ×2 (09:38→21:55)
[2019-01-16] MEDS: COLACE PO SCH ×2 (09:38→21:54)
[2019-01-16] MEDS: ZYLOPRIM PO SCH (09:38)
[2019-01-16] MEDS: LYRICA PO SCH (09:39)
[2019-01-16] MEDS: IMDUR PO SCH (09:39)
[2019-01-16] MEDS: HALFPRIN EC PO SCH (09:39)
[2019-01-16] MEDS: PROTONIX PO SCH (09:39)
[2019-01-16] MEDS: SODIUM CHLORIDE FLUSH SYRINGE 10 ML IV SCH ×2 (09:40→21:56)
--- NOTE | 2019-01-16 13:12 | Progress Note ---
Assessment and Plan Assessment and plan: 78 y.o Female with history of DM, CKD, [place] in 2010, CHF, paroxysmal atrial fibrillation anticoagulated on Eliquis, HTN, presented to the ED via EMS for acute hypoxic respiratory failure. Recently admitted and treated at [facility] for UTI and PNA. She was discharged to [facility] on 01/11/19. Found to be hypoxic and in respiratory distress at SNF. She was transported to [facility] ER for further evaluation and treatment. Acute hypoxic respiratory - On [place] oxygen sating well CHF - Cardiology following - Continue current management Paroxysmal A. fib Home regimen includes eliquis 2.5mg Currently on telemetry monitoring Hypertension Continue to monitor BP CKD - Monitor BMP Disposition; patient will be discharged to hospice once hospice bed is arranged. History Interval history: Patient was seen and evaluated this morning, patient was alert and oriented. She is on [place] oxygen. Hospitalist Physical - Physical exam Narrative exam: Not in cardiopulmonary distress. The patient appeared well nourished and normally developed. Vital signs as documented. Head exam is unremarkable. No scleral icterus . Neck is without jugular venous distension, thyromegaly, or carotid bruits. Lungs are clear to auscultation. Cardiac exam reveals regular rate and Rhythm. Abdominal exam reveals normal bowel sounds. Extremities are nonedematous and both femoral and pedal pulses are normal. CARE INFORMATION ASSOCIATE: Alert and oriented 3. No focal weakness. - Constitutional Vitals: Temp Pulse Resp BP Pulse Ox 98.1 F 71 18 164/79 100 01/16/19 07:44 01/16/19 07:44 01/16/19 07:44 01/16/19 07:44 01/16/19 07:44 General appearance: Present: no acute distress Results - Labs CBC & Chem 7: 01/14/19 07:48 01/14/19 07:48 Labs: Laboratory Last Values WBC 7.0 K/mm3 (4.5-11.0) 01/14/19 07:48 RBC 3.60 M/mm3 (3.65-5.03) L 01/14/19 07:48 Hgb 10.2 gm/dl (10.1-14.3) 01/14/19 07:48 Hct 32.4 % (30.3-42.9) 01/14/19 07:48 MCV 90 fl (79-97) 01/14/19 07:48 MCH 28 pg (28-32) 01/14/19 07:48 MCHC 31 % (30-34) 01/14/19 07:48 RDW 17.1 % (13.2-15.2) H 01/14/19 07:48 Plt Count 199 K/mm3 (140-440) 01/14/19 07:48 Lymph % (Auto) 11.0 % (13.4-35.0) L 01/14/19 07:48 [place] % (Auto) 5.5 % (0.0-7.3) 01/14/19 07:48 Eos % (Auto) 1.3 % (0.0-4.3) 01/14/19 07:48 Baso % (Auto) 0.5 % (0.0-1.8) 01/14/19 07:48 Lymph # 0.8 K/mm3 (1.2-5.4) L 01/14/19 07:48 [place] # 0.4 K/mm3 (0.0-0.8) 01/14/19 07:48 Eos # 0.1 K/mm3 (0.0-0.4) 01/14/19 07:48 Baso # 0.0 K/mm3 (0.0-0.1) 01/14/19 07:48 Seg Neutrophils % 81.7 % (40.0-70.0) H 01/14/19 07:48 Seg Neutrophils # 5.8 K/mm3 (1.8-7.7) 01/14/19 07:48 PT 15.2 Sec. (12.2-14.9) H 01/14/19 07:48 INR 1.13 (0.87-1.13) 01/14/19 07:48 POC ABG pH 7.287 (7.35-7.45) L 01/15/19 00:37 POC ABG pCO2 66.3 (35-45) H 01/15/19 00:37 POC ABG pO2 153 (80-105) H 01/15/19 00:37 POC ABG HCO3 31.7 (22-26 mml/L) 01/15/19 00:37 POC ABG Total CO2 34 (23-27mmol/L) 01/15/19 00:37 POC ABG O2 Sat 99 01/15/19 00:37 POC ABG Base Excess 5 ((-2) - (+3)mmol/L) 01/15/19 00:37 FiO2 100 % 01/15/19 00:37 Sodium 147 mmol/L (137-145) H 01/14/19 07:48 Potassium 4.7 mmol/L (3.6-5.0) 01/14/19 07:48 Chloride 106.6 mmol/L (98-107) 01/14/19 07:48 Carbon Dioxide 27 mmol/L (22-30) 01/14/19 07:48 Anion Gap 18 mmol/L 01/14/19 07:48 BUN 72 mg/dL (7-17) H 01/14/19 07:48 Creatinine 3.4 mg/dL (0.7-1.2) H 01/14/19 07:48 Estimated GFR 16 ml/min 01/14/19 07:48 BUN/Creatinine Ratio 21 % 01/14/19 07:48 Glucose 113 mg/dL (65-100) H 01/14/19 07:48 Lactic Acid 1.00 mmol/L (0.7-2.0) 01/14/19 07:45 Calcium 8.1 mg/dL (8.4-10.2) L 01/14/19 07:48 Magnesium 2.10 mg/dL (1.7-2.3) 01/14/19 07:48 Total Bilirubin 0.30 mg/dL (0.1-1.2) 01/14/19 07:48 AST 25 units/L (5-40) 01/14/19 07:48 ALT 9 units/L (7-56) 01/14/19 07:48 Alkaline Phosphatase 52 units/L (35-129) 01/14/19 07:48 Troponin T 0.496 ng/mL (0.00-0.029) H* 01/14/19 07:48 NT-Pro-B Natriuret Pep 8268 pg/mL (0-900) H 01/14/19 07:48 Total Protein 7.6 g/dL (6.3-8.2) 01/14/19 07:48 Albumin 3.1 g/dL (3.9-5) L 01/14/19 07:48 Albumin/Globulin Ratio 0.7 % 01/14/19 07:48 Triglycerides 96 mg/dL (2-149) 01/14/19 07:48 Cholesterol 174 mg/dL (50-199) 01/14/19 07:48 LDL Cholesterol Direct 128 mg/dL (50-130) 01/14/19 07:48 HDL Cholesterol 46 mg/dL (40-59) 01/14/19 07:48 Cholesterol/HDL Ratio 3.78 % 01/14/19 07:48 Urine Color Yellow (Yellow) 01/14/19 Unknown Urine Turbidity Clear (Clear) 01/14/19 Unknown Urine pH 5.0 (5.0-7.0) 01/14/19 Unknown Ur Specific [place] 1.008 (1.003-1.030) 01/14/19 Unknown Urine Protein 30 mg/dl mg/dL (Negative) 01/14/19 Unknown Urine Glucose (UA) Neg mg/dL (Negative) 01/14/19 Unknown Urine Ketones Neg mg/dL (Negative) 01/14/19 Unknown Urine Blood Sm (Negative) 01/14/19 Unknown Urine Nitrite Neg (Negative) 01/14/19 Unknown Urine Bilirubin Neg (Negative) 01/14/19 Unknown Urine Urobilinogen < 2.0 mg/dL (<2.0) 01/14/19 Unknown Ur Leukocyte Esterase Tr (Negative) 01/14/19 Unknown Urine WBC (Auto) 5.0 /HPF (0.0-6.0) 01/14/19 Unknown Urine RBC (Auto) 5.0 /HPF (0.0-6.0) 01/14/19 Unknown Urine Bacteria (Auto) 1+ /HPF (Negative) 01/14/19 Unknown Urine Mucus Few /HPF 01/14/19 Unknown Active Medications - Current Medications Current Medications: Generic Name Dose Route Start Last Admin Trade Name Freq PRN Reason Stop Dose Admin Acetaminophen 650 mg 01/14/19 12:26 Tylenol PO Q4H PRN Pain MILD(1-3)/Fever >100.5/MARTELL Albuterol 2.5 mg 01/14/19 14:08 01/15/19 00:26 Proventil IH 2.5 mg Q4HRT PRN Administration Shortness Of Breath Allopurinol 100 mg 01/15/19 10:00 01/16/19 09:38 Zyloprim PO 100 mg QDAY SALVATORE Administration Apixaban 2.5 mg 01/14/19 22:00 01/16/19 09:37 Eliquis PO 2.5 mg BID SALVATORE Administration Protocol Aspirin 81 mg 01/15/19 10:00 01/16/19 09:39 Halfprin Ec PO 81 mg DAILY SALVATORE Administration Atorvastatin Calcium 40 mg 01/14/19 22:00 01/15/19 22:05 Lipitor PO 40 mg QHS SALVATORE Administration Carvedilol 6.25 mg 01/14/19 22:00 01/16/19 09:38 Coreg PO 6.25 mg BID SALVATORE Administration Colchicine 0.6 mg 01/15/19 10:00 01/16/19 09:37 Colchicine PO 0.6 mg DAILY SALVATORE Administration Docusate Sodium 100 mg 01/14/19 22:00 01/16/19 09:38 Colace PO 100 mg BID SALVATORE Administration Ferrous Sulfate 325 mg 01/15/19 10:00 01/16/19 09:36 Feosol PO 325 mg DAILY SALVATORE Administration Furosemide 40 mg 01/14/19 18:00 01/16/19 05:46 Lasix IV 40 mg BID@0600,1800 SALVATORE Administration Isosorbide Mononitrate 60 mg 01/15/19 10:00 01/16/19 09:39 Imdur PO 60 mg QDAY SALVATORE Administration Lactulose 20 gm 01/14/19 20:00 01/16/19 09:36 Cephulac PO 20 gm QDAY SALVATORE Administration Morphine Sulfate 2 mg 01/14/19 12:49 01/15/19 05:28 Morphine IV 2 mg Q4H PRN Administration Pain, Moderate (4-6) Multivit/Ca Carb/B Cmplx/FA/Prenat 1 cap 01/15/19 10:00 01/16/19 09:36 Renal Caps PO 1 cap QDAY SALVATORE Administration Naloxone HCl 0.1 mg 01/14/19 12:49 Narcan 0.4 Mg/1 Ml IV Q2MIN PRN Res Rate </= 8 or 02 SAT < 92% Ondansetron HCl 4 mg 01/14/19 12:26 Zofran IV Q8H PRN Nausea And Vomiting Pantoprazole Sodium 20 mg 01/15/19 10:00 01/16/19 09:39 Protonix PO 20 mg QDAY SALVATORE Administration Potassium Chloride 10 meq 01/14/19 22:00 01/16/19 09:38 K-Dur PO 10 meq BID SALVATORE Administration Pregabalin 50 mg 01/15/19 10:00 01/16/19 09:39 Lyrica PO 50 mg QDAY SALVATORE Administration Sodium Chloride 10 ml 01/14/19 22:00 01/16/19 09:40 Sodium Chloride Flush Syringe 10 Ml IV 10 ml BID SALVATORE Administration Sodium Chloride 10 ml 01/14/19 12:26 Sodium Chloride Flush Syringe 10 Ml IV PRN PRN LINE FLUSH Valsartan 40 mg 01/15/19 10:00 01/16/19 09:37 Diovan PO 40 mg DAILY SALVATORE Administration
[2019-01-16] MEDS ORDERED: APRESOLINE IV PRN (18:23)
[2019-01-17] MEDS: LASIX IV SCH (06:26)
[2019-01-17] MEDS ORDERED: PEPTO BISMOL PO PRN (10:04)
[2019-01-17] MEDS: HALFPRIN EC PO SCH (10:26)
[2019-01-17] MEDS: Renal Caps PO SCH (10:27)
[2019-01-17] MEDS: LYRICA PO SCH (10:27)
[2019-01-17] MEDS: DIOVAN PO SCH (10:27)
[2019-01-17] MEDS: IMDUR PO SCH (10:28)
[2019-01-17] MEDS: COREG PO SCH ×4 (10:28→22:24)
[2019-01-17] MEDS: ZYLOPRIM PO SCH (10:29)
[2019-01-17] MEDS: ELIQUIS PO SCH ×2 (10:29→22:24)
[2019-01-17] MEDS: COLCHICINE PO SCH (10:29)
[2019-01-17] MEDS: K-DUR PO SCH (10:29)
[2019-01-17] MEDS: COLACE PO SCH ×2 (10:29→22:24)
[2019-01-17] MEDS: SODIUM CHLORIDE FLUSH SYRINGE 10 ML IV SCH ×2 (10:30→22:24)
[2019-01-17] MEDS: CEPHULAC PO SCH (10:31)
[2019-01-17] MEDS: PROTONIX PO SCH (10:31)
[2019-01-17] MEDS: FEOSOL PO SCH (10:32)
[2019-01-17] MEDS ORDERED: COREG PO SCH (13:29)
--- NOTE | 2019-01-17 13:29 | Progress Note ---
Assessment and Plan Assessment and plan: Acute hypoxic respiratory failure - Resolved - Currently saturating well on room air Acute on chronic heart failure - EF unknown - Improved on treatment - We'll change Lasix to oral Paroxysmal A. fib - Rate controlled - Continue Coreg and eliquis 2.5mg Elevated troponin -Probably secondary to demand ischemia due to the acute HF Hypertension - Uncontrolled, Coreg dose increased - Monitor and adjust meds as needed CRF -Baseline creatinine level unknown Hypernatremia -Expected to improve with diuretic Obesity with BMI of 38.3 Disposition: patient will be discharged to home with hospice once hospice bed is arranged. History Interval history: Patient complained of heartburn Hospitalist Physical - Constitutional Vitals: Temp Pulse Resp BP Pulse Ox 98.0 F 72 18 165/72 100 01/17/19 08:52 01/17/19 10:00 01/17/19 08:52 01/17/19 10:28 01/17/19 10:00 General appearance: Present: no acute distress, obese - EENT Eyes: Present: PERRL, EOM intact ENT: hearing intact, clear oral mucosa - Neck Neck: Present: supple - Respiratory Respiratory effort: normal Respiratory: right: wheezing, left: CTA - Cardiovascular Rhythm: regular Heart Sounds: Present: S1 & S2 - Extremities Extremities: No edema - Abdominal General gastrointestinal: soft, non-tender, normal bowel sounds - Integumentary Integumentary: Present: clear, warm, dry - Neurologic Neurologic: moves all extremities Results - Labs CBC & Chem 7: 01/14/19 07:48 01/14/19 07:48 Labs: Laboratory Last Values WBC 7.0 K/mm3 (4.5-11.0) 01/14/19 07:48 RBC 3.60 M/mm3 (3.65-5.03) L 01/14/19 07:48 Hgb 10.2 gm/dl (10.1-14.3) 01/14/19 07:48 Hct 32.4 % (30.3-42.9) 01/14/19 07:48 MCV 90 fl (79-97) 01/14/19 07:48 MCH 28 pg (28-32) 01/14/19 07:48 MCHC 31 % (30-34) 01/14/19 07:48 RDW 17.1 % (13.2-15.2) H 01/14/19 07:48 Plt Count 199 K/mm3 (140-440) 01/14/19 07:48 Lymph % (Auto) 11.0 % (13.4-35.0) L 01/14/19 07:48 [place] % (Auto) 5.5 % (0.0-7.3) 01/14/19 07:48 Eos % (Auto) 1.3 % (0.0-4.3) 01/14/19 07:48 Baso % (Auto) 0.5 % (0.0-1.8) 01/14/19 07:48 Lymph # 0.8 K/mm3 (1.2-5.4) L 01/14/19 07:48 [place] # 0.4 K/mm3 (0.0-0.8) 01/14/19 07:48 Eos # 0.1 K/mm3 (0.0-0.4) 01/14/19 07:48 Baso # 0.0 K/mm3 (0.0-0.1) 01/14/19 07:48 Seg Neutrophils % 81.7 % (40.0-70.0) H 01/14/19 07:48 Seg Neutrophils # 5.8 K/mm3 (1.8-7.7) 01/14/19 07:48 PT 15.2 Sec. (12.2-14.9) H 01/14/19 07:48 INR 1.13 (0.87-1.13) 01/14/19 07:48 POC ABG pH 7.287 (7.35-7.45) L 01/15/19 00:37 POC ABG pCO2 66.3 (35-45) H 01/15/19 00:37 POC ABG pO2 153 (80-105) H 01/15/19 00:37 POC ABG HCO3 31.7 (22-26 mml/L) 01/15/19 00:37 POC ABG Total CO2 34 (23-27mmol/L) 01/15/19 00:37 POC ABG O2 Sat 99 01/15/19 00:37 POC ABG Base Excess 5 ((-2) - (+3)mmol/L) 01/15/19 00:37 FiO2 100 % 01/15/19 00:37 Sodium 147 mmol/L (137-145) H 01/14/19 07:48 Potassium 4.7 mmol/L (3.6-5.0) 01/14/19 07:48 Chloride 106.6 mmol/L (98-107) 01/14/19 07:48 Carbon Dioxide 27 mmol/L (22-30) 01/14/19 07:48 Anion Gap 18 mmol/L 01/14/19 07:48 BUN 72 mg/dL (7-17) H 01/14/19 07:48 Creatinine 3.4 mg/dL (0.7-1.2) H 01/14/19 07:48 Estimated GFR 16 ml/min 01/14/19 07:48 BUN/Creatinine Ratio 21 % 01/14/19 07:48 Glucose 113 mg/dL (65-100) H 01/14/19 07:48 Lactic Acid 1.00 mmol/L (0.7-2.0) 01/14/19 07:45 Calcium 8.1 mg/dL (8.4-10.2) L 01/14/19 07:48 Magnesium 2.10 mg/dL (1.7-2.3) 01/14/19 07:48 Total Bilirubin 0.30 mg/dL (0.1-1.2) 01/14/19 07:48 AST 25 units/L (5-40) 01/14/19 07:48 ALT 9 units/L (7-56) 01/14/19 07:48 Alkaline Phosphatase 52 units/L (35-129) 01/14/19 07:48 Troponin T 0.496 ng/mL (0.00-0.029) H* 01/14/19 07:48 NT-Pro-B Natriuret Pep 8268 pg/mL (0-900) H 01/14/19 07:48 Total Protein 7.6 g/dL (6.3-8.2) 01/14/19 07:48 Albumin 3.1 g/dL (3.9-5) L 01/14/19 07:48 Albumin/Globulin Ratio 0.7 % 01/14/19 07:48 Triglycerides 96 mg/dL (2-149) 01/14/19 07:48 Cholesterol 174 mg/dL (50-199) 01/14/19 07:48 LDL Cholesterol Direct 128 mg/dL (50-130) 01/14/19 07:48 HDL Cholesterol 46 mg/dL (40-59) 01/14/19 07:48 Cholesterol/HDL Ratio 3.78 % 01/14/19 07:48 Urine Color Yellow (Yellow) 01/14/19 Unknown Urine Turbidity Clear (Clear) 01/14/19 Unknown Urine pH 5.0 (5.0-7.0) 01/14/19 Unknown Ur Specific [place] 1.008 (1.003-1.030) 01/14/19 Unknown Urine Protein 30 mg/dl mg/dL (Negative) 01/14/19 Unknown Urine Glucose (UA) Neg mg/dL (Negative) 01/14/19 Unknown Urine Ketones Neg mg/dL (Negative) 01/14/19 Unknown Urine Blood Sm (Negative) 01/14/19 Unknown Urine Nitrite Neg (Negative) 01/14/19 Unknown Urine Bilirubin Neg (Negative) 01/14/19 Unknown Urine Urobilinogen < 2.0 mg/dL (<2.0) 01/14/19 Unknown Ur Leukocyte Esterase Tr (Negative) 01/14/19 Unknown Urine WBC (Auto) 5.0 /HPF (0.0-6.0) 01/14/19 Unknown Urine RBC (Auto) 5.0 /HPF (0.0-6.0) 01/14/19 Unknown Urine Bacteria (Auto) 1+ /HPF (Negative) 01/14/19 Unknown Urine Mucus Few /HPF 01/14/19 Unknown Active Medications - Current Medications Current Medications: Generic Name Dose Route Start Last Admin Trade Name Freq PRN Reason Stop Dose Admin Acetaminophen 650 mg 01/14/19 12:26 Tylenol PO Q4H PRN Pain MILD(1-3)/Fever >100.5/MARTELL Albuterol 2.5 mg 01/14/19 14:08 01/15/19 00:26 Proventil IH 2.5 mg Q4HRT PRN Administration Shortness Of Breath Allopurinol 100 mg 01/15/19 10:00 01/17/19 10:29 Zyloprim PO 100 mg QDAY SALVATORE Administration Apixaban 2.5 mg 01/14/19 22:00 01/17/19 10:29 Eliquis PO 2.5 mg BID SALVATORE Administration Protocol Aspirin 81 mg 01/15/19 10:00 01/17/19 10:26 Halfprin Ec PO 81 mg DAILY SALVATORE Administration Atorvastatin Calcium 40 mg 01/14/19 22:00 01/16/19 21:55 Lipitor PO 40 mg QHS SALVATORE Administration Bismuth Subsalicylate 262 mg 01/17/19 10:04 Pepto Bismol PO Q6H PRN Indigestion Carvedilol 6.25 mg 01/14/19 22:00 01/17/19 10:28 Coreg PO 6.25 mg BID SALVATORE Administration Colchicine 0.6 mg 01/15/19 10:00 01/17/19 10:29 Colchicine PO 0.6 mg DAILY SALVATORE Administration Docusate Sodium 100 mg 01/14/19 22:00 01/17/19 10:29 Colace PO 100 mg BID SALVATORE Administration Ferrous Sulfate 325 mg 01/15/19 10:00 01/17/19 10:32 Feosol PO 325 mg DAILY SALVATORE Administration Furosemide 40 mg 01/14/19 18:00 01/17/19 06:26 Lasix IV 40 mg BID@0600,1800 SALVATORE Administration Hydralazine HCl 10 mg 01/16/19 18:23 Apresoline IV Q4HR PRN SBP greater than 160 Isosorbide Mononitrate 60 mg 01/15/19 10:00 01/17/19 10:28 Imdur PO 60 mg QDAY SALVATORE Administration Lactulose 20 gm 01/14/19 20:00 01/17/19 10:31 Cephulac PO 20 gm QDAY SALVATORE Administration Morphine Sulfate 2 mg 01/14/19 12:49 01/15/19 05:28 Morphine IV 2 mg Q4H PRN Administration Pain, Moderate (4-6) Multivit/Ca Carb/B Cmplx/FA/Prenat 1 cap 01/15/19 10:00 01/17/19 10:27 Renal Caps PO 1 cap QDAY SALVATORE Administration Naloxone HCl 0.1 mg 01/14/19 12:49 Narcan 0.4 Mg/1 Ml IV Q2MIN PRN Res Rate </= 8 or 02 SAT < 92% Ondansetron HCl 4 mg 01/14/19 12:26 Zofran IV Q8H PRN Nausea And Vomiting Pantoprazole Sodium 20 mg 01/15/19 10:00 01/17/19 10:31 Protonix PO 20 mg QDAY SALVATORE Administration Potassium Chloride 10 meq 01/14/19 22:00 01/17/19 10:29 K-Dur PO 10 meq BID SALVATORE Administration Pregabalin 50 mg 01/15/19 10:00 01/17/19 10:27 Lyrica PO 50 mg QDAY SALVATORE Administration Sodium Chloride 10 ml 01/14/19 22:00 01/17/19 10:30 Sodium Chloride Flush Syringe 10 Ml IV 10 ml BID SALVATORE Administration Sodium Chloride 10 ml 01/14/19 12:26 Sodium Chloride Flush Syringe 10 Ml IV PRN PRN LINE FLUSH Valsartan 40 mg 01/15/19 10:00 01/17/19 10:27 Diovan PO 40 mg DAILY SALVATORE Administration
[2019-01-18] MEDS: LASIX PO SCH (05:32)
[2019-01-18] MEDS: HALFPRIN EC PO SCH (09:54)
[2019-01-18] MEDS: COLACE PO SCH ×2 (09:54→22:28)
[2019-01-18] MEDS: LYRICA PO SCH (09:54)
[2019-01-18] MEDS: Renal Caps PO SCH (09:54)
[2019-01-18] MEDS: COREG PO SCH ×2 (09:54→22:27)
[2019-01-18] MEDS: CEPHULAC PO SCH (09:54)
[2019-01-18] MEDS: ZYLOPRIM PO SCH (09:54)
[2019-01-18] MEDS: FEOSOL PO SCH (09:55)
[2019-01-18] MEDS: ELIQUIS PO SCH ×2 (09:55→22:28)
[2019-01-18] MEDS: COLCHICINE PO SCH (09:55)
[2019-01-18] MEDS: PROTONIX PO SCH (09:55)
[2019-01-18] MEDS: IMDUR PO SCH (09:55)
[2019-01-18] MEDS: SODIUM CHLORIDE FLUSH SYRINGE 10 ML IV SCH ×2 (09:55→22:28)
[2019-01-18] MEDS: DIOVAN PO SCH (09:57)
--- NOTE | 2019-01-18 13:02 | Progress Note ---
Assessment and Plan - Patient Problems (1) Acute CHF (congestive heart failure) Current Visit: Yes Status: Acute Plan to address problem: Acute on chronic congestive heart failure. Improved with Lasix has been changed to by mouth. (2) Acute respiratory failure with hypoxia Current Visit: Yes Status: Acute Plan to address problem: Acute respiratory failure has resolved most likely secondary to CHF. (3) CKD (chronic kidney disease) Current Visit: No Status: Acute Plan to address problem: Patient with chronic kidney disease and establish a baseline. (4) Hypertensive emergency Current Visit: Yes Status: Acute Plan to address problem: Retention remains uncontrolled we'll increase L Kathy to 80 mg daily. (5) Morbid obesity Current Visit: Yes Status: Acute Plan to address problem: This also plays a role in patient's improvement in shortness of breath. (6) Atrial fibrillation Current Visit: Yes Status: Acute Plan to address problem: No evidence of bleeding rate is controlled. Continue elaquis and beta johana History Interval history: Patient is somewhat confused but good conversation. Slow to respond. States she wants her daughter to visit would like to talk to her. All questions and concerns answered to patient's satisfaction. Not in any acute distress anymore. Hospitalist Physical - Constitutional Vitals: Temp Pulse Resp BP Pulse Ox 98.6 F 89 20 182/92 95 01/18/19 08:34 01/18/19 08:34 01/18/19 08:34 01/18/19 08:34 01/18/19 09:11 General appearance: Present: no acute distress, obese - EENT Eyes: Present: PERRL, EOM intact ENT: hearing intact, clear oral mucosa, dentition normal, no oropharyngeal erythema, no poor dentition, no thrush, no ulcerations - Neck Neck: Present: supple, normal ROM - Respiratory Respiratory: bilateral: CTA (poor inspiratory effort), negative: other - Cardiovascular Rhythm: regular Heart Sounds: Present: S1 & S2 - Extremities Extremities: no ischemia, pulses intact, pulses symmetrical, normal temperature, normal color Extremity abnormal: edema - Abdominal General gastrointestinal: soft, non-tender, non-distended, normal bowel sounds - Psychiatric Psychiatric: other (interval cognitive impairment) - Neurologic Neurologic: CNII-XII intact, other (gen weakness) Results - Labs CBC & Chem 7: 01/14/19 07:48 01/14/19 07:48 Labs: Laboratory Last Values WBC 7.0 K/mm3 (4.5-11.0) 01/14/19 07:48 RBC 3.60 M/mm3 (3.65-5.03) L 01/14/19 07:48 Hgb 10.2 gm/dl (10.1-14.3) 01/14/19 07:48 Hct 32.4 % (30.3-42.9) 01/14/19 07:48 MCV 90 fl (79-97) 01/14/19 07:48 MCH 28 pg (28-32) 01/14/19 07:48 MCHC 31 % (30-34) 01/14/19 07:48 RDW 17.1 % (13.2-15.2) H 01/14/19 07:48 Plt Count 199 K/mm3 (140-440) 01/14/19 07:48 Lymph % (Auto) 11.0 % (13.4-35.0) L 01/14/19 07:48 [place] % (Auto) 5.5 % (0.0-7.3) 01/14/19 07:48 Eos % (Auto) 1.3 % (0.0-4.3) 01/14/19 07:48 Baso % (Auto) 0.5 % (0.0-1.8) 01/14/19 07:48 Lymph # 0.8 K/mm3 (1.2-5.4) L 01/14/19 07:48 [place] # 0.4 K/mm3 (0.0-0.8) 01/14/19 07:48 Eos # 0.1 K/mm3 (0.0-0.4) 01/14/19 07:48 Baso # 0.0 K/mm3 (0.0-0.1) 01/14/19 07:48 Seg Neutrophils % 81.7 % (40.0-70.0) H 01/14/19 07:48 Seg Neutrophils # 5.8 K/mm3 (1.8-7.7) 01/14/19 07:48 PT 15.2 Sec. (12.2-14.9) H 01/14/19 07:48 INR 1.13 (0.87-1.13) 01/14/19 07:48 POC ABG pH 7.287 (7.35-7.45) L 01/15/19 00:37 POC ABG pCO2 66.3 (35-45) H 01/15/19 00:37 POC ABG pO2 153 (80-105) H 01/15/19 00:37 POC ABG HCO3 31.7 (22-26 mml/L) 01/15/19 00:37 POC ABG Total CO2 34 (23-27mmol/L) 01/15/19 00:37 POC ABG O2 Sat 99 01/15/19 00:37 POC ABG Base Excess 5 ((-2) - (+3)mmol/L) 01/15/19 00:37 FiO2 100 % 01/15/19 00:37 Sodium 147 mmol/L (137-145) H 01/14/19 07:48 Potassium 4.7 mmol/L (3.6-5.0) 01/14/19 07:48 Chloride 106.6 mmol/L (98-107) 01/14/19 07:48 Carbon Dioxide 27 mmol/L (22-30) 01/14/19 07:48 Anion Gap 18 mmol/L 01/14/19 07:48 BUN 72 mg/dL (7-17) H 01/14/19 07:48 Creatinine 3.4 mg/dL (0.7-1.2) H 01/14/19 07:48 Estimated GFR 16 ml/min 01/14/19 07:48 BUN/Creatinine Ratio 21 % 01/14/19 07:48 Glucose 113 mg/dL (65-100) H 01/14/19 07:48 Lactic Acid 1.00 mmol/L (0.7-2.0) 01/14/19 07:45 Calcium 8.1 mg/dL (8.4-10.2) L 01/14/19 07:48 Magnesium 2.10 mg/dL (1.7-2.3) 01/14/19 07:48 Total Bilirubin 0.30 mg/dL (0.1-1.2) 01/14/19 07:48 AST 25 units/L (5-40) 01/14/19 07:48 ALT 9 units/L (7-56) 01/14/19 07:48 Alkaline Phosphatase 52 units/L (35-129) 01/14/19 07:48 Troponin T 0.496 ng/mL (0.00-0.029) H* 01/14/19 07:48 NT-Pro-B Natriuret Pep 8268 pg/mL (0-900) H 01/14/19 07:48 Total Protein 7.6 g/dL (6.3-8.2) 01/14/19 07:48 Albumin 3.1 g/dL (3.9-5) L 01/14/19 07:48 Albumin/Globulin Ratio 0.7 % 01/14/19 07:48 Triglycerides 96 mg/dL (2-149) 01/14/19 07:48 Cholesterol 174 mg/dL (50-199) 01/14/19 07:48 LDL Cholesterol Direct 128 mg/dL (50-130) 01/14/19 07:48 HDL Cholesterol 46 mg/dL (40-59) 01/14/19 07:48 Cholesterol/HDL Ratio 3.78 % 01/14/19 07:48 Urine Color Yellow (Yellow) 01/14/19 Unknown Urine Turbidity Clear (Clear) 01/14/19 Unknown Urine pH 5.0 (5.0-7.0) 01/14/19 Unknown Ur Specific [place] 1.008 (1.003-1.030) 01/14/19 Unknown Urine Protein 30 mg/dl mg/dL (Negative) 01/14/19 Unknown Urine Glucose (UA) Neg mg/dL (Negative) 01/14/19 Unknown Urine Ketones Neg mg/dL (Negative) 01/14/19 Unknown Urine Blood Sm (Negative) 01/14/19 Unknown Urine Nitrite Neg (Negative) 01/14/19 Unknown Urine Bilirubin Neg (Negative) 01/14/19 Unknown Urine Urobilinogen < 2.0 mg/dL (<2.0) 01/14/19 Unknown Ur Leukocyte Esterase Tr (Negative) 01/14/19 Unknown Urine WBC (Auto) 5.0 /HPF (0.0-6.0) 01/14/19 Unknown Urine RBC (Auto) 5.0 /HPF (0.0-6.0) 01/14/19 Unknown Urine Bacteria (Auto) 1+ /HPF (Negative) 01/14/19 Unknown Urine Mucus Few /HPF 01/14/19 Unknown Active Medications - Current Medications Current Medications: Generic Name Dose Route Start Last Admin Trade Name Freq PRN Reason Stop Dose Admin Acetaminophen 650 mg 01/14/19 12:26 Tylenol PO Q4H PRN Pain MILD(1-3)/Fever >100.5/MARTELL Albuterol 2.5 mg 01/14/19 14:08 01/15/19 00:26 Proventil IH 2.5 mg Q4HRT PRN Administration Shortness Of Breath Allopurinol 100 mg 01/15/19 10:00 01/18/19 09:54 Zyloprim PO 100 mg QDAY SALVATORE Administration Apixaban 2.5 mg 01/14/19 22:00 01/18/19 09:55 Eliquis PO 2.5 mg BID SALVATORE Administration Protocol Aspirin 81 mg 01/15/19 10:00 01/18/19 09:54 Halfprin Ec PO 81 mg DAILY SALVATORE Administration Atorvastatin Calcium 40 mg 01/14/19 22:00 01/17/19 22:24 Lipitor PO 40 mg QHS SALVATORE Administration Bismuth Subsalicylate 262 mg 01/17/19 10:04 Pepto Bismol PO Q6H PRN Indigestion Carvedilol 12.5 mg 01/17/19 22:00 01/18/19 09:54 Coreg PO 12.5 mg BID SALVATORE Administration Colchicine 0.6 mg 01/15/19 10:00 01/18/19 09:55 Colchicine PO 0.6 mg DAILY SALVATORE Administration Docusate Sodium 100 mg 01/14/19 22:00 01/18/19 09:54 Colace PO 100 mg BID SALVATORE Administration Ferrous Sulfate 325 mg 01/15/19 10:00 01/18/19 09:55 Feosol PO 325 mg DAILY SALVATORE Administration Furosemide 40 mg 01/18/19 06:00 01/18/19 05:32 Lasix PO 40 mg DAILY@0600 SALVATORE Administration Hydralazine HCl 10 mg 01/16/19 18:23 Apresoline IV Q4HR PRN SBP greater than 160 Isosorbide Mononitrate 60 mg 01/15/19 10:00 01/18/19 09:55 Imdur PO 60 mg QDAY SALVATORE Administration Lactulose 20 gm 01/14/19 20:00 01/18/19 09:54 Cephulac PO 20 gm QDAY SALVATORE Administration Morphine Sulfate 2 mg 01/14/19 12:49 01/15/19 05:28 Morphine IV 2 mg Q4H PRN Administration Pain, Moderate (4-6) Multivit/Ca Carb/B Cmplx/FA/Prenat 1 cap 01/15/19 10:00 01/18/19 09:54 Renal Caps PO 1 cap QDAY SALVATORE Administration Naloxone HCl 0.1 mg 01/14/19 12:49 Narcan 0.4 Mg/1 Ml IV Q2MIN PRN Res Rate </= 8 or 02 SAT < 92% Ondansetron HCl 4 mg 01/14/19 12:26 Zofran IV Q8H PRN Nausea And Vomiting Pantoprazole Sodium 20 mg 01/15/19 10:00 01/18/19 09:55 Protonix PO 20 mg QDAY SALVATORE Administration Pregabalin 50 mg 01/15/19 10:00 01/18/19 09:54 Lyrica PO 50 mg QDAY SALVATORE Administration Sodium Chloride 10 ml 01/14/19 22:00 01/18/19 09:55 Sodium Chloride Flush Syringe 10 Ml IV 10 ml BID SALVATORE Administration Sodium Chloride 10 ml 01/14/19 12:26 Sodium Chloride Flush Syringe 10 Ml IV PRN PRN LINE FLUSH Valsartan 40 mg 01/15/19 10:00 01/18/19 09:57 Diovan PO 40 mg DAILY SALVATORE Administration Valsartan 80 mg 01/18/19 13:00 Diovan PO QDAY SALVATORE
--- NOTE | 2019-01-18 14:18 | Progress Note ---
Assessment and Plan - Patient Problems (1) Acute CHF (congestive heart failure) Current Visit: Yes Status: Acute Plan to address problem: In the absence of significant inflammation from [place], we will order an echocardiogram for left ventricular function assessment. Subjective Date of service: 01/18/19 Interval history: Patient appears comfortable on bedrest, no new cardiac complaints. Objective Vital Signs Temp Pulse Resp BP Pulse Ox 01/18/19 09:11 95 01/18/19 08:34 98.6 F 89 20 182/92 92 01/18/19 05:44 20 01/18/19 04:11 97.4 F L 74 20 163/69 100 01/17/19 23:41 98.6 F 68 16 143/66 100 01/17/19 23:20 89 22 96 01/17/19 21:19 95 01/17/19 20:55 97.9 F 80 20 148/73 98 01/17/19 20:45 80 01/17/19 18:00 98.4 F 77 18 126/64 95 - Physical Examination General: No Apparent Distress HEENT: Positive: PERRL Neck: Positive: trachea midline Cardiac: Positive: Reg Rate and Rhythm Lungs: Positive: Decreased Breath Sounds Neuro: Positive: Grossly Intact Abdomen: Positive: Soft Skin: Positive: Clear Extremities: Present: edema (trace)
[2019-01-18] MEDS ORDERED: DIOVAN PO ONE (16:00)
[2019-01-19] MEDS: LASIX PO SCH (05:58)
[2019-01-19 08:01] LABS: Calcium 8.7 mg/dL (8.4-10.2)
[2019-01-19] MEDS: ZYLOPRIM PO SCH (09:05)
[2019-01-19] MEDS: ELIQUIS PO SCH ×2 (09:05→21:36)
[2019-01-19] MEDS: COLACE PO SCH ×2 (09:05→21:36)
[2019-01-19] MEDS: COLCHICINE PO SCH (09:05)
[2019-01-19] MEDS: HALFPRIN EC PO SCH (09:05)
[2019-01-19] MEDS: LYRICA PO SCH (09:05)
[2019-01-19] MEDS: IMDUR PO SCH (09:05)
[2019-01-19] MEDS: COREG PO SCH ×2 (09:05→21:37)
[2019-01-19] MEDS: SODIUM CHLORIDE FLUSH SYRINGE 10 ML IV SCH ×2 (09:05→21:37)
[2019-01-19] MEDS: FEOSOL PO SCH (09:05)
[2019-01-19] MEDS: Renal Caps PO SCH (09:05)
[2019-01-19] MEDS: PROTONIX PO SCH (09:05)
[2019-01-19] MEDS: CEPHULAC PO SCH (09:05)
--- NOTE | 2019-01-19 09:57 | Progress Note ---
Assessment and Plan Assessment and plan: 78 y.o Female with history of DM, CKD, [place] in 2010, CHF, paroxysmal atrial fibrillation anticoagulated on Eliquis, HTN, presented to the ED via EMS for acute hypoxic respiratory failure. Pt was recently admitted and treated at [facility] for UTI and PNA. She was discharged to [facility]. Upon EMS arrival to [facility] pt was round to be in hypoxic and in respiratory distress, she was placed on CPAP and transported to [facility]. She was transitioned to Venturi mask in ED. Currently pt is on 2L NC. Pt is DNR and will be discharged to Inpatient Hospice. Acute hypoxic respiratory Currently on Venturi Mask Continue to monitor O2 sats Pending Discharge to Hospice CHF CXR showed mild cardiomegaly and pulmonary venous congestion Cardiology consultated recommendations appreciated Followed by [facility] as Outpatient Paroxysmal A. fib Home regimen includes eliquis 2.5mg Currently on telemetry monitoring Hypertension Continue to monitor BP CKD On admission BUN/Cr 72/3.4 Monitor BUN and creatinine BC x1 resulted gram positive cocci; second BC NGTD; consider starting on empiric abx Urine Culture results pending Disposition Plan: Awaiting placement to [facility] History Interval history: Pt has been transitioned to NC. There were no acute overnight events. Hospitalist Physical - Physical exam Narrative exam: Present: no acute distress - EENT Eyes: Present: PERRL ENT: poor dentition - Neck Neck: Present: supple - Respiratory Respiratory effort: other Respiratory: bilateral: diminished - Cardiovascular Rhythm: regular Heart Sounds: Present: S1 & S2 - Extremities Extremities: pulses intact Peripheral Pulses: within normal limits - Abdominal General gastrointestinal: Present: soft Female genitourinary: Present: deferred - Rectal Rectal Exam: deferred - Integumentary Integumentary: Present: warm, dry - Musculoskeletal Musculoskeletal: generalized weakness - Psychiatric Psychiatric: cooperative - Neurologic Neurologic: other (able to follow commands) - Constitutional Vitals: Temp Pulse Resp BP Pulse Ox 98.2 F 82 20 174/84 98 01/19/19 08:13 01/19/19 08:13 01/19/19 08:13 01/19/19 08:13 01/19/19 08:13 General appearance: Present: no acute distress, obese Results - Labs CBC & Chem 7: 01/14/19 07:48 01/19/19 07:05 Labs: Laboratory Last Values WBC 7.0 K/mm3 (4.5-11.0) 01/14/19 07:48 RBC 3.60 M/mm3 (3.65-5.03) L 01/14/19 07:48 Hgb 10.2 gm/dl (10.1-14.3) 01/14/19 07:48 Hct 32.4 % (30.3-42.9) 01/14/19 07:48 MCV 90 fl (79-97) 01/14/19 07:48 MCH 28 pg (28-32) 01/14/19 07:48 MCHC 31 % (30-34) 01/14/19 07:48 RDW 17.1 % (13.2-15.2) H 01/14/19 07:48 Plt Count 199 K/mm3 (140-440) 01/14/19 07:48 Lymph % (Auto) 11.0 % (13.4-35.0) L 01/14/19 07:48 [place] % (Auto) 5.5 % (0.0-7.3) 01/14/19 07:48 Eos % (Auto) 1.3 % (0.0-4.3) 01/14/19 07:48 Baso % (Auto) 0.5 % (0.0-1.8) 01/14/19 07:48 Lymph # 0.8 K/mm3 (1.2-5.4) L 01/14/19 07:48 [place] # 0.4 K/mm3 (0.0-0.8) 01/14/19 07:48 Eos # 0.1 K/mm3 (0.0-0.4) 01/14/19 07:48 Baso # 0.0 K/mm3 (0.0-0.1) 01/14/19 07:48 Seg Neutrophils % 81.7 % (40.0-70.0) H 01/14/19 07:48 Seg Neutrophils # 5.8 K/mm3 (1.8-7.7) 01/14/19 07:48 PT 15.2 Sec. (12.2-14.9) H 01/14/19 07:48 INR 1.13 (0.87-1.13) 01/14/19 07:48 POC ABG pH 7.287 (7.35-7.45) L 01/15/19 00:37 POC ABG pCO2 66.3 (35-45) H 01/15/19 00:37 POC ABG pO2 153 (80-105) H 01/15/19 00:37 POC ABG HCO3 31.7 (22-26 mml/L) 01/15/19 00:37 POC ABG Total CO2 34 (23-27mmol/L) 01/15/19 00:37 POC ABG O2 Sat 99 01/15/19 00:37 POC ABG Base Excess 5 ((-2) - (+3)mmol/L) 01/15/19 00:37 FiO2 100 % 01/15/19 00:37 Sodium 148 mmol/L (137-145) H 01/19/19 07:05 Potassium 4.5 mmol/L (3.6-5.0) 01/19/19 07:05 Chloride 105.3 mmol/L (98-107) 01/19/19 07:05 Carbon Dioxide 30 mmol/L (22-30) 01/19/19 07:05 Anion Gap 17 mmol/L 01/19/19 07:05 BUN 71 mg/dL (7-17) H 01/19/19 07:05 Creatinine 3.6 mg/dL (0.7-1.2) H 01/19/19 07:05 Estimated GFR 15 ml/min 01/19/19 07:05 BUN/Creatinine Ratio 20 % 01/19/19 07:05 Glucose 93 mg/dL (65-100) 01/19/19 07:05 Lactic Acid 1.00 mmol/L (0.7-2.0) 01/14/19 07:45 Calcium 8.7 mg/dL (8.4-10.2) 01/19/19 07:05 Magnesium 2.10 mg/dL (1.7-2.3) 01/14/19 07:48 Total Bilirubin 0.30 mg/dL (0.1-1.2) 01/14/19 07:48 AST 25 units/L (5-40) 01/14/19 07:48 ALT 9 units/L (7-56) 01/14/19 07:48 Alkaline Phosphatase 52 units/L (35-129) 01/14/19 07:48 Troponin T 0.496 ng/mL (0.00-0.029) H* 01/14/19 07:48 NT-Pro-B Natriuret Pep 8268 pg/mL (0-900) H 01/14/19 07:48 Total Protein 7.6 g/dL (6.3-8.2) 01/14/19 07:48 Albumin 3.1 g/dL (3.9-5) L 01/14/19 07:48 Albumin/Globulin Ratio 0.7 % 01/14/19 07:48 Triglycerides 96 mg/dL (2-149) 01/14/19 07:48 Cholesterol 174 mg/dL (50-199) 01/14/19 07:48 LDL Cholesterol Direct 128 mg/dL (50-130) 01/14/19 07:48 HDL Cholesterol 46 mg/dL (40-59) 01/14/19 07:48 Cholesterol/HDL Ratio 3.78 % 01/14/19 07:48 Urine Color Yellow (Yellow) 01/14/19 Unknown Urine Turbidity Clear (Clear) 01/14/19 Unknown Urine pH 5.0 (5.0-7.0) 01/14/19 Unknown Ur Specific [place] 1.008 (1.003-1.030) 01/14/19 Unknown Urine Protein 30 mg/dl mg/dL (Negative) 01/14/19 Unknown Urine Glucose (UA) Neg mg/dL (Negative) 01/14/19 Unknown Urine Ketones Neg mg/dL (Negative) 01/14/19 Unknown Urine Blood Sm (Negative) 01/14/19 Unknown Urine Nitrite Neg (Negative) 01/14/19 Unknown Urine Bilirubin Neg (Negative) 01/14/19 Unknown Urine Urobilinogen < 2.0 mg/dL (<2.0) 01/14/19 Unknown Ur Leukocyte Esterase Tr (Negative) 01/14/19 Unknown Urine WBC (Auto) 5.0 /HPF (0.0-6.0) 01/14/19 Unknown Urine RBC (Auto) 5.0 /HPF (0.0-6.0) 01/14/19 Unknown Urine Bacteria (Auto) 1+ /HPF (Negative) 01/14/19 Unknown Urine Mucus Few /HPF 01/14/19 Unknown Active Medications - Current Medications Current Medications: Generic Name Dose Route Start Last Admin Trade Name Freq PRN Reason Stop Dose Admin Acetaminophen 650 mg 01/14/19 12:26 Tylenol PO Q4H PRN Pain MILD(1-3)/Fever >100.5/MARTELL Albuterol 2.5 mg 01/14/19 14:08 01/15/19 00:26 Proventil IH 2.5 mg Q4HRT PRN Administration Shortness Of Breath Allopurinol 100 mg 01/15/19 10:00 01/19/19 09:05 Zyloprim PO 100 mg QDAY SALVATORE Administration Apixaban 2.5 mg 01/14/19 22:00 01/19/19 09:05 Eliquis PO 2.5 mg BID SALVATORE Administration Protocol Aspirin 81 mg 01/15/19 10:00 01/19/19 09:05 Halfprin Ec PO 81 mg DAILY SALVATORE Administration Atorvastatin Calcium 40 mg 01/14/19 22:00 01/18/19 22:27 Lipitor PO 40 mg QHS SALVATORE Administration Bismuth Subsalicylate 262 mg 01/17/19 10:04 Pepto Bismol PO Q6H PRN Indigestion Carvedilol 12.5 mg 01/17/19 22:00 01/19/19 09:05 Coreg PO 12.5 mg BID SALVATORE Administration Colchicine 0.6 mg 01/15/19 10:00 01/19/19 09:05 Colchicine PO 0.6 mg DAILY SALVATORE Administration Docusate Sodium 100 mg 01/14/19 22:00 01/19/19 09:05 Colace PO 100 mg BID SALVATORE Administration Ferrous Sulfate 325 mg 01/15/19 10:00 01/19/19 09:05 Feosol PO 325 mg DAILY SALVATORE Administration Furosemide 40 mg 01/18/19 06:00 01/19/19 05:58 Lasix PO 40 mg DAILY@0600 SALVATORE Administration Hydralazine HCl 10 mg 01/16/19 18:23 01/19/19 05:56 Apresoline IV 10 mg Q4HR PRN Administration SBP greater than 160 Isosorbide Mononitrate 60 mg 01/15/19 10:00 01/19/19 09:05 Imdur PO 60 mg QDAY SALVATORE Administration Lactulose 20 gm 01/14/19 20:00 01/19/19 09:05 Cephulac PO 20 gm QDAY SALVATORE Administration Morphine Sulfate 2 mg 01/14/19 12:49 01/15/19 05:28 Morphine IV 2 mg Q4H PRN Administration Pain, Moderate (4-6) Multivit/Ca Carb/B Cmplx/FA/Prenat 1 cap 01/15/19 10:00 01/19/19 09:05 Renal Caps PO 1 cap QDAY SALVATORE Administration Naloxone HCl 0.1 mg 01/14/19 12:49 Narcan 0.4 Mg/1 Ml IV Q2MIN PRN Res Rate </= 8 or 02 SAT < 92% Ondansetron HCl 4 mg 01/14/19 12:26 Zofran IV Q8H PRN Nausea And Vomiting Pantoprazole Sodium 20 mg 01/15/19 10:00 01/19/19 09:05 Protonix PO 20 mg QDAY SALVATORE Administration Pregabalin 50 mg 01/15/19 10:00 01/19/19 09:05 Lyrica PO 50 mg QDAY SALVATORE Administration Sodium Chloride 10 ml 01/14/19 22:00 01/19/19 09:05 Sodium Chloride Flush Syringe 10 Ml IV 10 ml BID SALVATORE Administration Sodium Chloride 10 ml 01/14/19 12:26 Sodium Chloride Flush Syringe 10 Ml IV PRN PRN LINE FLUSH Valsartan 80 mg 01/19/19 10:00 01/19/19 09:05 Diovan PO 80 mg QDAY SALVATORE Administration
[2019-01-19] MEDS ORDERED: DIOVAN PO SCH (10:00)
--- NOTE | 2019-01-19 12:00 | Progress Note ---
Assessment and Plan Acute hypoxic respiratory failure Chronic renal disease Hypertension Paroxysmal Afib on eliquis 2.5mg as an outpatient Diabetes Hx of CHF chest x-ray showed abnormal cardiac silhouette, mild vascular congestion, but no overt pulmonary edema or heart failure. Non-specific troponin s/t renal failure AND/DNR status We will obtain an echocardiogram for LVEF assessment. Subjective Date of service: 01/19/19 Interval history: Patient is resting in bed comfortably. No distress noted. Objective Vital Signs Temp Pulse Resp BP Pulse Ox 01/19/19 08:13 98.2 F 82 20 174/84 98 01/19/19 05:56 75 175/76 01/19/19 04:09 98.0 F 20 175/76 01/18/19 23:54 97.0 F L 70 20 163/70 100 01/18/19 22:27 75 156/76 01/18/19 22:00 79 01/18/19 20:21 98.0 F 73 20 156/70 100 01/18/19 20:14 100 01/18/19 16:36 98.2 F 71 20 197/87 100 01/18/19 14:22 80 98 - Physical Examination General: No Apparent Distress HEENT: Positive: PERRL Neck: Positive: trachea midline Cardiac: Positive: Reg Rate and Rhythm Neuro: Positive: Grossly Intact Extremities: Absent: edema - Labs and Meds Comprehensive Metabolic Panel 01/19/19 Range/Units 07:05 Sodium 148 H (137-145) mmol/L Potassium 4.5 (3.6-5.0) mmol/L Chloride 105.3 (98-107) mmol/L Carbon Dioxide 30 (22-30) mmol/L BUN 71 H (7-17) mg/dL Creatinine 3.6 H (0.7-1.2) mg/dL Glucose 93 (65-100) mg/dL Calcium 8.7 (8.4-10.2) mg/dL
[2019-01-19] MEDS: DIOVAN PO SCH (13:37)
[2019-01-19] MEDS: MORPHINE IV PRN ×2 (13:37→17:17)
--- NOTE | 2019-01-19 16:09 | Progress Note ---
Assessment and Plan Assessment and plan: Acute hypoxic respiratory failure - Improved - Pt is currently saturating well via NC Acute on chronic diastolic heart failure - Echocardiogram showed EF of 60-65% - Improved on treatment - Cont oral Lasix Paroxysmal A. fib - Rate controlled - Continue Coreg and eliquis 2.5mg Elevated troponin -Probably secondary to demand ischemia due to the acute HF Hypertension - Uncontrolled - Continue current antihypertensives - Patient is awaiting hospice CRF -Baseline creatinine level unknown Hypernatremia -Continue diuretic Obesity with BMI of 38.3 Disposition: patient is awaiting inpatient hospice History Interval history: Pt complained of bilateral leg pain Hospitalist Physical - Constitutional Vitals: Temp Pulse Resp BP Pulse Ox 98.2 F 82 20 174/84 98 01/19/19 08:13 01/19/19 08:13 01/19/19 08:13 01/19/19 08:13 01/19/19 08:13 General appearance: Present: no acute distress, obese - EENT Eyes: Present: PERRL, EOM intact ENT: hearing intact, clear oral mucosa - Neck Neck: Present: supple - Respiratory Respiratory effort: normal Respiratory: right: diminished, left: rales - Cardiovascular Rhythm: regular Heart Sounds: Present: S1 & S2 - Extremities Extremity abnormal: edema (in BLE) - Abdominal General gastrointestinal: soft, non-tender, normal bowel sounds - Integumentary Integumentary: Present: clear, warm, dry - Neurologic Neurologic: moves all extremities Results - Labs CBC & Chem 7: 01/14/19 07:48 01/19/19 07:05 Labs: Laboratory Last Values WBC 7.0 K/mm3 (4.5-11.0) 01/14/19 07:48 RBC 3.60 M/mm3 (3.65-5.03) L 01/14/19 07:48 Hgb 10.2 gm/dl (10.1-14.3) 01/14/19 07:48 Hct 32.4 % (30.3-42.9) 01/14/19 07:48 MCV 90 fl (79-97) 01/14/19 07:48 MCH 28 pg (28-32) 01/14/19 07:48 MCHC 31 % (30-34) 01/14/19 07:48 RDW 17.1 % (13.2-15.2) H 01/14/19 07:48 Plt Count 199 K/mm3 (140-440) 01/14/19 07:48 Lymph % (Auto) 11.0 % (13.4-35.0) L 01/14/19 07:48 [place] % (Auto) 5.5 % (0.0-7.3) 01/14/19 07:48 Eos % (Auto) 1.3 % (0.0-4.3) 01/14/19 07:48 Baso % (Auto) 0.5 % (0.0-1.8) 01/14/19 07:48 Lymph # 0.8 K/mm3 (1.2-5.4) L 01/14/19 07:48 [place] # 0.4 K/mm3 (0.0-0.8) 01/14/19 07:48 Eos # 0.1 K/mm3 (0.0-0.4) 01/14/19 07:48 Baso # 0.0 K/mm3 (0.0-0.1) 01/14/19 07:48 Seg Neutrophils % 81.7 % (40.0-70.0) H 01/14/19 07:48 Seg Neutrophils # 5.8 K/mm3 (1.8-7.7) 01/14/19 07:48 PT 15.2 Sec. (12.2-14.9) H 01/14/19 07:48 INR 1.13 (0.87-1.13) 01/14/19 07:48 POC ABG pH 7.287 (7.35-7.45) L 01/15/19 00:37 POC ABG pCO2 66.3 (35-45) H 01/15/19 00:37 POC ABG pO2 153 (80-105) H 01/15/19 00:37 POC ABG HCO3 31.7 (22-26 mml/L) 01/15/19 00:37 POC ABG Total CO2 34 (23-27mmol/L) 01/15/19 00:37 POC ABG O2 Sat 99 01/15/19 00:37 POC ABG Base Excess 5 ((-2) - (+3)mmol/L) 01/15/19 00:37 FiO2 100 % 01/15/19 00:37 Sodium 148 mmol/L (137-145) H 01/19/19 07:05 Potassium 4.5 mmol/L (3.6-5.0) 01/19/19 07:05 Chloride 105.3 mmol/L (98-107) 01/19/19 07:05 Carbon Dioxide 30 mmol/L (22-30) 01/19/19 07:05 Anion Gap 17 mmol/L 01/19/19 07:05 BUN 71 mg/dL (7-17) H 01/19/19 07:05 Creatinine 3.6 mg/dL (0.7-1.2) H 01/19/19 07:05 Estimated GFR 15 ml/min 01/19/19 07:05 BUN/Creatinine Ratio 20 % 01/19/19 07:05 Glucose 93 mg/dL (65-100) 01/19/19 07:05 Lactic Acid 1.00 mmol/L (0.7-2.0) 01/14/19 07:45 Calcium 8.7 mg/dL (8.4-10.2) 01/19/19 07:05 Magnesium 2.10 mg/dL (1.7-2.3) 01/14/19 07:48 Total Bilirubin 0.30 mg/dL (0.1-1.2) 01/14/19 07:48 AST 25 units/L (5-40) 01/14/19 07:48 ALT 9 units/L (7-56) 01/14/19 07:48 Alkaline Phosphatase 52 units/L (35-129) 01/14/19 07:48 Troponin T 0.496 ng/mL (0.00-0.029) H* 01/14/19 07:48 NT-Pro-B Natriuret Pep 8268 pg/mL (0-900) H 01/14/19 07:48 Total Protein 7.6 g/dL (6.3-8.2) 01/14/19 07:48 Albumin 3.1 g/dL (3.9-5) L 01/14/19 07:48 Albumin/Globulin Ratio 0.7 % 01/14/19 07:48 Triglycerides 96 mg/dL (2-149) 01/14/19 07:48 Cholesterol 174 mg/dL (50-199) 01/14/19 07:48 LDL Cholesterol Direct 128 mg/dL (50-130) 01/14/19 07:48 HDL Cholesterol 46 mg/dL (40-59) 01/14/19 07:48 Cholesterol/HDL Ratio 3.78 % 01/14/19 07:48 Urine Color Yellow (Yellow) 01/14/19 Unknown Urine Turbidity Clear (Clear) 01/14/19 Unknown Urine pH 5.0 (5.0-7.0) 01/14/19 Unknown Ur Specific [place] 1.008 (1.003-1.030) 01/14/19 Unknown Urine Protein 30 mg/dl mg/dL (Negative) 01/14/19 Unknown Urine Glucose (UA) Neg mg/dL (Negative) 01/14/19 Unknown Urine Ketones Neg mg/dL (Negative) 01/14/19 Unknown Urine Blood Sm (Negative) 01/14/19 Unknown Urine Nitrite Neg (Negative) 01/14/19 Unknown Urine Bilirubin Neg (Negative) 01/14/19 Unknown Urine Urobilinogen < 2.0 mg/dL (<2.0) 01/14/19 Unknown Ur Leukocyte Esterase Tr (Negative) 01/14/19 Unknown Urine WBC (Auto) 5.0 /HPF (0.0-6.0) 01/14/19 Unknown Urine RBC (Auto) 5.0 /HPF (0.0-6.0) 01/14/19 Unknown Urine Bacteria (Auto) 1+ /HPF (Negative) 01/14/19 Unknown Urine Mucus Few /HPF 01/14/19 Unknown Active Medications - Current Medications Current Medications: Generic Name Dose Route Start Last Admin Trade Name Freq PRN Reason Stop Dose Admin Acetaminophen 650 mg 01/14/19 12:26 Tylenol PO Q4H PRN Pain MILD(1-3)/Fever >100.5/MARTELL Albuterol 2.5 mg 01/14/19 14:08 01/15/19 00:26 Proventil IH 2.5 mg Q4HRT PRN Administration Shortness Of Breath Allopurinol 100 mg 01/15/19 10:00 01/19/19 09:05 Zyloprim PO 100 mg QDAY SALVATORE Administration Apixaban 2.5 mg 01/14/19 22:00 01/19/19 09:05 Eliquis PO 2.5 mg BID SALVATORE Administration Protocol Aspirin 81 mg 01/15/19 10:00 01/19/19 09:05 Halfprin Ec PO 81 mg DAILY SALVATORE Administration Atorvastatin Calcium 40 mg 01/14/19 22:00 01/18/19 22:27 Lipitor PO 40 mg QHS SALVATORE Administration Bismuth Subsalicylate 262 mg 01/17/19 10:04 Pepto Bismol PO Q6H PRN Indigestion Carvedilol 12.5 mg 01/17/19 22:00 01/19/19 09:05 Coreg PO 12.5 mg BID SALVATORE Administration Colchicine 0.6 mg 01/15/19 10:00 01/19/19 09:05 Colchicine PO 0.6 mg DAILY SALVATORE Administration Docusate Sodium 100 mg 01/14/19 22:00 01/19/19 09:05 Colace PO 100 mg BID SALVATORE Administration Ferrous Sulfate 325 mg 01/15/19 10:00 01/19/19 09:05 Feosol PO 325 mg DAILY SALVATORE Administration Furosemide 40 mg 01/18/19 06:00 01/19/19 05:58 Lasix PO 40 mg DAILY@0600 SALVATORE Administration Hydralazine HCl 10 mg 01/16/19 18:23 01/19/19 05:56 Apresoline IV 10 mg Q4HR PRN Administration SBP greater than 160 Isosorbide Mononitrate 60 mg 01/15/19 10:00 01/19/19 09:05 Imdur PO 60 mg QDAY SALVATORE Administration Lactulose 20 gm 01/14/19 20:00 01/19/19 09:05 Cephulac PO 20 gm QDAY SALVATORE Administration Morphine Sulfate 2 mg 01/14/19 12:49 01/19/19 13:37 Morphine IV 2 mg Q4H PRN Administration Pain, Moderate (4-6) Multivit/Ca Carb/B Cmplx/FA/Prenat 1 cap 01/15/19 10:00 01/19/19 09:05 Renal Caps PO 1 cap QDAY SALVATORE Administration Naloxone HCl 0.1 mg 01/14/19 12:49 Narcan 0.4 Mg/1 Ml IV Q2MIN PRN Res Rate </= 8 or 02 SAT < 92% Ondansetron HCl 4 mg 01/14/19 12:26 Zofran IV Q8H PRN Nausea And Vomiting Pantoprazole Sodium 20 mg 01/15/19 10:00 01/19/19 09:05 Protonix PO 20 mg QDAY SALVATORE Administration Pregabalin 50 mg 01/15/19 10:00 01/19/19 09:05 Lyrica PO 50 mg QDAY SALVATORE Administration Sodium Chloride 10 ml 01/14/19 22:00 01/19/19 09:05 Sodium Chloride Flush Syringe 10 Ml IV 10 ml BID SALVATORE Administration Sodium Chloride 10 ml 01/14/19 12:26 Sodium Chloride Flush Syringe 10 Ml IV PRN PRN LINE FLUSH Valsartan 160 mg 01/19/19 12:00 01/19/19 13:37 Diovan PO 160 mg QDAY SALVATORE Administration
[2019-01-20] MEDS: LASIX PO SCH (05:23)
[2019-01-20] MEDS: PROVENTIL IH PRN (08:49)
[2019-01-20] MEDS: COREG PO SCH (10:16)
[2019-01-20] MEDS: COLACE PO SCH (10:22)
[2019-01-20] MEDS: ZYLOPRIM PO SCH (10:22)
[2019-01-20] MEDS: FEOSOL PO SCH (10:22)
[2019-01-20] MEDS: IMDUR PO SCH (10:22)
[2019-01-20] MEDS: CEPHULAC PO SCH (10:22)
[2019-01-20] MEDS: LYRICA PO SCH (10:22)
[2019-01-20] MEDS: DIOVAN PO SCH (10:23)
[2019-01-20] MEDS: PROTONIX PO SCH (10:23)
[2019-01-20] MEDS: HALFPRIN EC PO SCH (10:23)
[2019-01-20] MEDS: ELIQUIS PO SCH (10:23)
[2019-01-20] MEDS: Renal Caps PO SCH (10:23)
[2019-01-20 13:32] VITALS: BP 157/85
--- NOTE | 2019-01-20 16:15 | Discharge Summary ---
Providers - Providers Date of Admission: 01/14/19 09:55 Date of discharge: 01/20/19 Attending physician: SAPNA MORALES Primary care physician: ADAM CORONA Hospitalization Reason for admission: Acute hypoxic respiratory failure, Acute on chronic diastolic heart failure Condition: Stable Pertinent studies: Echocardiogram Chest x-ray Procedures: None Hospital course: Final discharge diagnosis: -Acute hypoxic respiratory failure -Acute on chronic diastolic heart failure with EF of 60-65% -Paroxysmal A. fib -Elevated troponin, probably secondary to demand ischemia due to the acute HF -Hypertension -CRF, baseline creatinine level unknown -Hypernatremia -Obesity with BMI of 38.3 Hospital course: Patient was admitted and placed on CHF protocol and oxygen supplementation as needed. For her other comorbidities, she was continued on her home medications. At some point, hospice care was requested by both patient and family members. Initially plan was for the patient to be discharged to inpatient hospice facility, subsequently the plan was changed which contributed to the patient's h ospital stay. Thereafter, she was discharged to home on hospice. Disposition: [id number] HOME UNDER [facility] Time spent for discharge: 35 minutes Core Measure Documentation - Palliative Care Palliative Care/ Comfort Measures: Hospice Care - Core Measures Any of the following diagnoses?: heart failure - Heart Failure Discharge Requirements SARAH/ARB for LVSD if EF <40%: No Reason for no SARAH/ARB: Renal impairment Beta johana at discharge: Yes Exam - Constitutional Vitals: Temp Pulse Resp BP Pulse Ox 98.9 F 100 H 77 H 157/85 99 01/20/19 13:11 01/20/19 14:04 01/20/19 14:04 01/20/19 13:11 01/20/19 14:08 General appearance: Present: no acute distress, obese - EENT Eyes: Present: PERRL, EOM intact ENT: hearing intact, clear oral mucosa - Neck Neck: Present: supple, normal ROM - Respiratory Respiratory effort: normal Respiratory: bilateral: CTA - Cardiovascular Rhythm: regular Heart Sounds: Present: S1 & S2. Absent: rub, click - Extremities Extremity abnormal: edema (in bilateral lower extremities) Peripheral Pulses: within normal limits - Abdominal General gastrointestinal: Present: soft, non-tender, non-distended, normal bowel sounds Female genitourinary: Present: deferred - Integumentary Integumentary: Present: clear, warm, dry - Musculoskeletal Musculoskeletal: generalized weakness - Psychiatric Psychiatric: appropriate mood/affect, intact judgment & insight - Neurologic Neurologic: moves all extremities Plan Follow up with: ADAM CORONA [Other] - 3-5 Days Prescriptions: AtorvaSTATin [Lipitor] 40 mg PO QHS #30 tab Aspirin [Adult Aspirin Regimen] 81 mg PO DAILY #30 tablet. Valsartan [Diovan] 160 mg PO QDAY #30 tablet Apixaban [Eliquis] 2.5 mg PO BID #60 tablet ISOSORBIDE MONOnitrate [Imdur ER] 60 mg PO QDAY #30 tablet Furosemide [Lasix TAB] 40 mg PO DAILY@0600 #30 tablet Pantoprazole [Protonix TAB] 20 mg PO QDAY #30 tablet. ALBUTEROL Inhaler(NF) [VENTOLIN Inhaler(NF)] 2 puff IH Q4H PRN #1 inha PRN Reason: Wheezing Allopurinol [Zyloprim] 100 mg PO QDAY #30 tablet
[2019-01-20] MEDS: SODIUM CHLORIDE FLUSH SYRINGE 10 ML IV SCH (17:05)
[2019-01-21] MEDS ORDERED: COLCHICINE PO SCH (10:00)
== END 2019-01-20 18:48 | disposition home health service (06) | DRG 291 ==
LOC: ED 07:32 → 4A 09:55 → 2B-ACE 01-19 19:16
PROVIDERS: ADMIT Internal Medicine; ATTEND Internal Medicine
PROC: 4A033R1 Measurement of Arterial Saturation, Peripheral, Percutaneous Approach (ICD-10-PCS; principal; 2019-01-14)
PROC: 5A09357 Assistance with Respiratory Ventilation, Less than 24 Consecutive Hours, Continuous Positive Airway Pressure (ICD-10-PCS; 2019-01-14)
PROC: 5A09457 Assistance with Respiratory Ventilation, 24-96 Consecutive Hours, Continuous Positive Airway Pressure (ICD-10-PCS; 2019-01-15)
PROC: 5A09357 Assistance with Respiratory Ventilation, Less than 24 Consecutive Hours, Continuous Positive Airway Pressure (ICD-10-PCS; 2019-01-20)
DX: I13.0 Hypertensive heart and chronic kidney disease with heart failure and stage 1 through stage 4 chronic kidney disease, or unspecified chronic kidney disease (principal); I50.33 Acute on chronic diastolic (congestive) heart failure; J96.01 Acute respiratory failure with hypoxia; I16.1 Hypertensive emergency; E87.0 Hyperosmolality and hypernatremia; I24.9 Acute ischemic heart disease, unspecified; N18.9 Chronic kidney disease, unspecified; E11.22 Type 2 diabetes mellitus with diabetic chronic kidney disease; Z66 Do not resuscitate; I48.0 Paroxysmal atrial fibrillation; K21.9 Gastro-esophageal reflux disease without esophagitis; E66.01 Morbid (severe) obesity due to excess calories; M19.90 Unspecified osteoarthritis, unspecified site; J45.909 Unspecified asthma, uncomplicated; Z86.73 Personal history of transient ischemic attack (TIA), and cerebral infarction without residual deficits; Z79.01 Long term (current) use of anticoagulants; Z87.440 Personal history of urinary (tract) infections; Z87.01 Personal history of pneumonia (recurrent); Z79.82 Long term (current) use of aspirin; Z79.899 Other long term (current) drug therapy; I25.2 Old myocardial infarction; Z68.36 Body mass index [BMI] 36.0-36.9, adult
CPT/HCPCS: 36415; 36600; 71045; 80048; 80053; 80061; 81001; 82140; 82803; 83735; 83880; 84484; 85025; 85610; 87040; 87086; 93005; 93010; 93306; 94640; 94660; 94760; G0378; A9270-GY; J0360; J1940; J2270; J3246